=== PATIENT | female | born 1945 | race African-American/Black ===

== ENCOUNTER 2020-05-05 06:14 | Inpatient (IN) | payer OTHER ==
[2020-05-05] VITALS (13 sets, daily range): BP systolic 83–128; BP diastolic 42–67
[~2020-05-05] VITALS: Ht 162.6 cm; Wt 107.0 kg
--- NOTE | 2020-05-05 06:44 | Anethesia Preoperative Eval ---
Anesthesia Pre-op PMH/ROS General Date of Evaluation: May 05, 2020 Time of Evaluation: 07:01 Anesthesiologist: Td ASA Score: ASA 3 Mallampati Score Class I : Soft palate, uvula, fauces, pillars visible Class II: Soft palate, uvula, fauces visible Class III: Soft palate, base of uvula visible Class IV: Only hard plate visible Mallampati Classification: Class II Surgeon: Damaso Diagnosis: Back Pain Surgical Procedure: ALIF L4-5, L5-S1, Post L5-S1 Decompression Anesthesia History: none Family History: no anesthesia problems Allergies: Coded Allergies: ASPIRIN (Verified Allergy, Intermediate, vomiting, 05/04/20) CODEINE (Verified Allergy, Intermediate, vomiting, 05/04/20) Medications: see eMAR Patient NPO?: Yes Past Medical History Cardiovascular: Reports: HTN, arrhythmia, other - HL Pulmonary: Reports: COPD, ESSIE Gastrointestinal/Genitourinary: Reports: GERD Neurologic/Psychiatric: Reports: CVA - Stents Placed Musculoskeletal/Integumentary: Reports: OA, other - Gout Other: obesity - BMI 37 Anesthesia Pre-op Phys. Exam Physician Exam Constitutional: NAD Neurologic: CN 2-12 intact Cardiovascular: RRR Respiratory: CTA Gastrointestinal: S/NT/ND Airway Exam Mallampati Score: Class II MO: full ROM: full Teeth: missing, intact Anesthesia Pre-op A/P Risk Assessment & Plan Assessment: ASA 3 Plan: GA, SED, GlideScope Status Change Before Surgery: No Pre-Antibiotics Dru grams Ancef IV Given Within 1 Hr of Incision: Yes Time Given: 07:31 Negrito Appiah MD May 05, 2020 06:44
[2020-05-05] MEDS ORDERED: Atropine Sulfate 0.4mg/ml inj IVP PRN ×2 (06:45→15:30)
[2020-05-05] MEDS ORDERED: LR 1000ml 1,000 ML IVLG SCH (06:45)
[2020-05-05] MEDS ORDERED: LORazepam Inj 2mg/ml 1ml IV PRN ×2 (06:45→15:30)
[2020-05-05] MEDS ORDERED: Metoclopramide 10mg/2ml Inj IVP PRN ×2 (06:45→15:30)
[2020-05-05] MEDS ORDERED: Meperidine 25mg/1ml Inj (FOR RIGORS ONLY) IV PRN ×2 (06:45→15:30)
[2020-05-05] MEDS ORDERED: Acetaminophen (Non formulary) 100 ML IV ONE (06:45)
[2020-05-05] MEDS ORDERED: Labetalol 5mg/ml 20ml vial IV PRN ×2 (06:45→15:30)
[2020-05-05] MEDS ORDERED: DiphenhydrAMINE 50mg/ml Inj IVP PRN ×2 (06:45→15:30)
[2020-05-05] MEDS ORDERED: fentaNYL 100 mcg/2 mL IV PRN (06:45)
[2020-05-05] MEDS ORDERED: Midazolam 2mg/2ml Inj IVP PRN ×2 (06:45→15:30)
[2020-05-05] MEDS ORDERED: Rocuronium Bromide 50mg/5ml Inj IV ONE (06:47)
[2020-05-05] MEDS ORDERED: EPINEPHrine 1mg/1ml Amp ONE (06:51)
[2020-05-05] MEDS ORDERED: Heparin 5000 units/ml inj ONE (06:52)
[2020-05-05] MEDS ORDERED: Neosporin Oint Ud Pkt TOPIC ONE (06:52)
[2020-05-05] MEDS ORDERED: Bupivacaine 0.25% Inj 30ml INJ ONE (06:53)
[2020-05-05] MEDS ORDERED: Bacitracin 50000 Units Vial ONE (06:53)
[2020-05-05] MEDS ORDERED: Gelfoam Size TOPIC ONE ×2 (06:53→11:32)
[2020-05-05] MEDS ORDERED: Thrombin 5000 units TOPIC ONE ×2 (06:53→11:31)
[2020-05-05] MEDS ORDERED: propofoL 1,000mg/100ml IV ONE (07:00)
[2020-05-05] MEDS ORDERED: Glycopyrrolate 0.2mg/ml 1ml Vial ONE (07:01)
[2020-05-05] MEDS ORDERED: LR 1000ml ONE (07:01)
[2020-05-05] MEDS ORDERED: NS Irrig 1000ml ONE (07:01)
[2020-05-05] MEDS ORDERED: Sterile Water Irrig 2000ml IRRIG ONE (07:01)
--- NOTE | 2020-05-05 07:01 | Immediate Post-Op Evaluation ---
Immediate Post-Op Evalulation Immediate Post-Op Evalulation Procedure: ALIF L4-5, L5-S1, Post L5-S1 Decompression Date of Evaluation: May 05, 2020 Time of Evaluation: 14:43 IV Fluids: 1500 LR Blood Products: 0 Estimated Blood Loss: 350 Urinary Output: 500 Blood Pressure Systolic: 114 Blood Pressure Diastolic: 51 Pulse Rate: 89 Respiratory Rate: 16 O2 Sat by Pulse Oximetry: 100 Temperature (Fahrenheit): 97.2 Pain Score (1-10): 2 Nausea: No Vomiting: No Complications 0 Patient Status: awake, reacts, patent, extubated, none Hydration Status: adequate Dru Grams Ancef IV Given Within 1 Hr of Incision: Yes Time Given: 07:31 Negrito Appiah MD May 05, 2020 07:01
[2020-05-05] MEDS ORDERED: Lidocaine 1% MPF 10mg/ml 5ml ONE (07:05)
[2020-05-05] MEDS ORDERED: Sodium Chloride 10ml vial INJ ONE (07:05)
[2020-05-05] MEDS ORDERED: fentaNYL 100 mcg/2 mL IV ONE ×2 (07:06→13:57)
[2020-05-05] MEDS ORDERED: Lidocaine 1% Plain 30 ml INJ ONE ×2 (07:07→10:12)
[2020-05-05] MEDS ORDERED: CYMBALTA30 MG ORAL (07:11)
[2020-05-05] MEDS ORDERED: VERAPAMIL HCL120 MG PO (07:11)
[2020-05-05] MEDS ORDERED: LIPITOR40 MG ORAL (07:11)
[2020-05-05] MEDS ORDERED: ZOFRAN4 M3 ORAL (07:11)
[2020-05-05] MEDS ORDERED: LISINOPRIL20 MG ORAL (07:11)
[2020-05-05] MEDS ORDERED: HYDROCHLOROTHIA25 MG ORAL (07:11)
[2020-05-05] MEDS ORDERED: TRAMADOL HCL50 MG ORAL (07:11)
[2020-05-05] MEDS ORDERED: OMEPRAZOLE20 M2 ORAL (07:11)
[2020-05-05] MEDS ORDERED: ZYLOPRIM300 MG ORAL (07:11)
[2020-05-05] MEDS ORDERED: MOBIC15 MG ORAL (07:11)
[2020-05-05] MEDS: Bupivacaine 0.5% Inj 30 ml vial INJ ONE ×2 (07:41→14:05)
--- NOTE | 2020-05-05 08:02 | Pre-Procedure Note/Attestation ---
Pre-Procedure Note/Attestation Complete Prior to Procedure Planned Procedure: not applicable Procedure Narrative: L4-5, L5-S1 ALIF Post Decompression Indications for Procedure Pre-Operative Diagnosis: L4-5, L5-S1 stenosis and instability Attestation I attest that I discussed the nature of the procedure; its benefits; risks and complications; and alternatives (and the risks and benefits of such alternatives), prior to the procedure, with the patient (or the patient's legal litigation claim representative). I attest that, if there was a reasonable possibility of needing a blood transfusion, the patient (or the patient's legal litigation claim representative) was given the Pending sale to [facility] standardized written summary, pursuant to the [place] Blood Safety Act ([place] Health and Safety Code # 1645, as amended). I attest that I re-evaluated the patient just prior to the surgery and that there has been no change in the patient's H&P, except as documented below: SHARAN DIAZ May 05, 2020 08:01
[2020-05-05] MEDS ORDERED: ePHEDrine 50mg/ml Inj ONE ×2 (08:03→09:52)
[2020-05-05] MEDS ORDERED: Phenylephrine 10mg/ml Vial ONE (09:47)
--- NOTE | 2020-05-05 12:47 | NUR ---
CASE MANAGEMENT: REVIEW SI: BACK PAIN . L4-5, L5-S1 STENOSIS AND INSTABILITY ALIF L4-5, L5-S1, PSF 05/05 T 97.4 HR 91 RR 20 BP 128/67 SAT 96% ROOM AIR SARS-CoV-2, ADONIS NEGATIVE IS: ANCEF IV X1 LIDOCAINE INJ X1 EPHEDRINE X1 VERSED IV X1 MAG SULFATE IV X1 LR IVF X1 SAME DAY SURGERY DCP: PATIENT IS FROM HOME
--- NOTE | 2020-05-05 14:13 | Brief Operative Note ---
Immediate Post Operative Note Operative Note Pre-op Diagnosis: L4-5, L5-S1 stenosis and instability Procedure: Operation 1: L4-5-S1 ALIF Operation 2. Left L5-S1 decompression and resection of synovial cyst. L4-5 not decompressed: well distracted anteriorly and patient on Pressor during surgery. (Labile BP) Post-op Diagnosis: same as pre-op Surgeon: Damaso Director Of Diversity And Inclusion: Alexsandra Additional Surgeons: Farshad Anesthesiologist: Ari Anesthesia: general Specimen: none Complications: none Condition: stable Fluids: See anesthesia record Estimated Blood Loss: volume - 250cc Drains: none Implant(s) used?: Yes - Renovus cages anteriorly SHARAN DIAZ May 05, 2020 14:12
--- NOTE | 2020-05-05 14:36 | 48 Hour Post Anesthesia Eval ---
Post Anesthesia Evaluation Procedure: ALIF L4-5, L5-S1, Post L5-S1 Decompression Date of Evaluation: May 05, 2020 Time of Evaluation: 16:57 Blood Pressure Systolic: 121 0: 74 Pulse Rate: 81 Respiratory Rate: 18 Temperature (Fahrenheit): 97.6 O2 Sat by Pulse Oximetry: 97 Airway: patent Nausea: No Vomiting: No Pain Intensity: 2 Hydration Status: adequate Cardiopulmonary Status: Stable Mental Status/LOC: patient returned to baseline Follow-up Care/Observations: 0 Post-Anesthesia Complications: 0 Follow-up care needed: N/A Negrito Appiah MD May 05, 2020 14:36
[2020-05-05] MEDS: fentaNYL 100 mcg/2 mL IV PRN ×2 (15:53→16:11)
--- NOTE | 2020-05-05 16:50 | NUR ---
NURSES NOTES: Received report from LATRICIA Orosco. Pt is A/O x4 but drowsy. No pain noted but fenantyl given prior to coming to the unit. Bp is low at 73/39 and MD notified. Placed pt in Trendelenburg and bp raised to 89/52. Will continue to monitor BP. IS given to pt and tolerated well. Admitting order taken from Dr. Eastman and carried out.
--- NOTE | 2020-05-05 17:18 | Diagnostic Imaging Report ---
INDICATION: Pain, intraoperative TECHNIQUE: Intraoperative imaging Fluoroscopy time: 40 seconds Total dose: 0.42193 mGym2 Total number of images: 7 COMPARISON: None FINDINGS: Intraoperative images demonstrate surgical tool projected at the anterior aspect of the L4-5 disc. Subsequent images document placement of anterior fusion hardware at the lower lumbar spine IMPRESSION:
[2020-05-05] MEDS ORDERED: Morphine Sulfate 2mg/ml Inj(IV/IM USE ONLY) IM PRN ×3 (18:00→21:45)
[2020-05-05] MEDS ORDERED: Naloxone 0.4mg/ml Inj IVP PRN (18:00)
[2020-05-05] MEDS ORDERED: ceFAZolin sod 1 GM in D5W 55 ML IV SCH (18:00)
[2020-05-05 18:52] LABS: HEMATOCRIT 28.9 % (37.0-47.0); MEAN CORPUSCULAR VOLUME 101 FL (80-99); PLATELET COUNT 146 K/UL (150-450); RED BLOOD COUNT 2.87 M/UL (4.20-5.40); RED CELL DISTRIBUTION WIDTH 15.4 % (11.6-14.8); WHITE BLOOD COUNT 9.4 K/UL (4.8-10.8)
[2020-05-05 19:06] LABS: CALCIUM 8.9 MG/DL (8.5-10.1); CREATININE 2.5 MG/DL (0.55-1.30); POTASSIUM 5.1 MMOL/L (3.5-5.1)
--- NOTE | 2020-05-05 19:23 | NUR ---
NURSE NOTES: Received report from LATRICIA De Paz. Patient is awake on flat position. Alert and oriented x 4. monitoring manager is in place, shows sinus rhythm with no chest pain reported. On NPO, instructed and amenable. With Abraham lleft in place, drained via gravity, with yellow-orange output. IV site is on left forearm g-20, running D5 NS + 20 that is patent and intact. Safety measures are in place, bed in lowest and locked position, side rails up x 2, call light button and bedside table within reach, instructed to call for any assistance needed. Will continue plan of care.
--- NOTE | 2020-05-05 19:44 | NUR ---
NURSE HAND-OFF REPORT: Important Events on Shift: New Admit S/P Back Surgery Patient Status: Unstable Diet: NPO Pending Orders: Pending Results/Labs: Pending MD notification: Latest Vital Signs: Temperature 97.5 , Pulse 98 , B/P 83 /43 , Respiratory Rate 20 , O2 SAT 96 , Nasal Cannula, O2 Flow Rate 5.0 . Vital Sign Comment: EKG Rhythm: Sinus Rhythm Rhythm change?: N MD Notified?: - MD Response: Latest Hargrove Fall Score: 55 Fall Risk: High Risk Safety Measures: Call light Within Reach, Bed Alarm , Side Rails Side Rails x2, Bed position Low and Locked. Fall Precautions: Patient Fall Education Report given to LATRICIA Gates.
[2020-05-05] MEDS ORDERED: Morphine Sulfate 2mg/ml Inj(IV/IM USE ONLY) IM SCH (20:16)
--- NOTE | 2020-05-05 20:25 | NUR ---
NURSE NOTES: Dr. Eastman at bedside. Ordered pain medication, will carry out.
--- NOTE | 2020-05-05 21:00 | NUR ---
NURSE NOTES: Patient's hemoglobin is 9.0. Dr. Petit ordered to tranfuse 1 unit PRBC. Informed patient regarding this order, verbalized understanding. Will carry out.
--- NOTE | 2020-05-05 21:20 | NUR ---
NURSE NOTES: Consent secured for the blood transfusion. Attached to chart for documentation.
--- NOTE | 2020-05-05 21:40 | NUR ---
NURSE NOTES: Inserted a new IV line on right hand g-22. Assessment done, vitals were taken. Hooked Normal saline and 1 unit PRBC, will monitor for untoward transfusion reaction.
[2020-05-06] VITALS (7 sets, daily range): BP systolic 95–128; BP diastolic 42–58
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
[2020-05-06] MEDS: Morphine Sulfate 2mg/ml Inj(IV/IM USE ONLY) IVP PRN ×4 (00:33→23:59)
[2020-05-06] MEDS: D5NS 1,000 ML IV SCH ×3 (00:34→17:03)
--- NOTE | 2020-05-06 01:30 | NUR ---
NURSE NOTES: Blood transfusion of 1 unit PRBC was done, no transfusion reaction noted. Instructed patient regarding blood drawn this morning to check her hemoglobin level, verbalized understanding.
[2020-05-06] MEDS: ceFAZolin sod 1 GM in D5W 55 ML IV SCH ×2 (02:07→09:48)
[2020-05-06 04:51] LABS: BASOPHILS % (AUTO) 1.7 % (0.0-2.0); HEMATOCRIT 30.2 % (37.0-47.0); HEMOGLOBIN 10.1 G/DL (12.0-16.0); LYMPHOCYTES % (AUTO) 7.7 % (20.0-45.0); MEAN CORPUSCULAR VOLUME 92 FL (80-99); MONOCYTES % (AUTO) 11.6 % (1.0-10.0); NEUTROPHILS % (AUTO) 79.1 % (45.0-75.0); PLATELET COUNT 121 K/UL (150-450); RED BLOOD COUNT 3.27 M/UL (4.20-5.40); RED CELL DISTRIBUTION WIDTH 15.4 % (11.6-14.8); WHITE BLOOD COUNT 7.9 K/UL (4.8-10.8)
[2020-05-06 04:55] LABS: CALCIUM 8.9 MG/DL (8.5-10.1); POTASSIUM 5.3 MMOL/L (3.5-5.1)
--- NOTE | 2020-05-06 07:19 | NUR ---
NURSE HAND-OFF REPORT: Important Events on Shift: Patient has been complaining of lower back pain morphine 2mg was given. Transfussed 1 unit PRBC yesterday. Patient Status: Patient is awake on bed, in stable condition, plan of care endorsed. Diet: NPO except medication and ice chips. Pending Orders: none Pending Results/Labs:none Pending MD notification:none Latest Vital Signs: Temperature 98.2 , Pulse 103 , B/P 103 /42 , Respiratory Rate 20 , O2 SAT 96 , Nasal Cannula, O2 Flow Rate 3.0 . Vital Sign Comment: stable EKG Rhythm: Sinus Tachycardia Rhythm change?: N MD Notified?: N - MD Response: Latest Hargrove Fall Score: 35 Fall Risk: Medium Risk Safety Measures: Call light Within Reach, Bed Alarm , Side Rails Side Rails x2, Bed position Low and Locked. Fall Precautions: Yellow Socks Yellow Gown Door Sign Patient Fall Education Report given to LATRICIA De Paz.
--- NOTE | 2020-05-06 07:31 | NUR ---
NURSE NOTES: Received report from LATRICIA De Jesus. Pt is A/O x 4 and verbally responsive. No SOB or acute distress. BP is stable. Pt is NPO, but allowed ice chips and water for medication. Pt has IV on LFA 22G, running NS that is patent and intact. Pain noted at this time but pt refused medications stating it was tolerable for her. Safety measures are in place, bed in lowest and locked position, side rails up x 2, call light button and bedside table within reach, instructed to call for any assistance needed. Will continue plan of care.
[2020-05-06] MEDS ORDERED: Lisinopril 10mg tab ORAL SCH (09:00)
--- NOTE | 2020-05-06 09:35 | NUR ---
PT EVALUATION NOTE Patient seen for initial evaluation and treatment initiated. Patient presents with pain and impaired functional mobility s/p lumbar surgery. Patient instructed in back precautions and proper log roll technique for in/OOB. Patient required mod assist for bed mobility and min assist for transfers with FWW. Patient able to take several small sideways steps with min assist and FWW. Patient will benefit from skilled inpatient PT intervention to increase strength and postural stability for improved level of functional mobility and safety, and for compliance with spine precautions. Recommend discharge home with home PT once medically cleared by MD. Patient has SPC, FWW and wheelchair at home. Addendum: 05/06/20 at 1258 by ZULEIMA HENDERSON PT Amended: Links added.
[2020-05-06] MEDS: DULoxetine 30mg cap ORAL SCH (09:48)
--- NOTE | 2020-05-06 10:04 | NUR ---
CASE MANAGEMENT:REVIEW 05/06/20 SI: POD#1 S/P SPINAL DECOMPRESSION AND RESECTION. ALIF 98.2 102 20 95/45 96% ON 3L/NC H/H-10.1/30.2 K+5.3 BUN+33 CR+2.0 IS: NICOTINE PATCH Q24 LISINOPRIL PO Q12 ALLOPURINOL PO QD CYMBALTA PO QD IVF@100/HR IV MORPHINE Q2HRS PRN PAIN : TELEMETRY STATUS D/T HYPOTENSION AND TACHYCARDIA
--- NOTE | 2020-05-06 10:05 | NUR ---
NURSES NOTES: Spoke to Dr. Eastman regarding pt and how pt is able to sit semi fowlers and still sustain her BP above 100 systolic. Also that she was feeling flatus and wanted to know if she could have some food. Clear liquids was ordered and carried out. Dr. Eastman stated he would be in later on today to see the pt. Updated him that H/H was up to above 10. And that potassium was high at 5.3. He said it was ok because the IV fluids were changed and it should come down. Informed the ot of her diet changing and that we would keep on eye on her bowels and flatus that she was having.
[2020-05-06] MEDS: HYDROcodone/Acetamin 10/325 tab ORAL PRN ×2 (11:10→18:06)
--- NOTE | 2020-05-06 15:16 | Pain Management Progress Note ---
Allergies: Coded Allergies: ASPIRIN (Verified Allergy, Intermediate, vomiting, 05/04/20) CODEINE (Verified Allergy, Intermediate, vomiting, 05/04/20) Vitals Vital Signs Date Time Temp Pulse Resp B/P (MAP) Pulse Ox O2 Delivery O2 Flow Rate FiO2 05/06/20 12:00 105 05/06/20 12:00 97.9 107 20 128/52 (77) 98 05/06/20 09:48 112/50 05/06/20 09:45 97.9 99 20 124/56 (78) 96 05/06/20 08:31 Nasal Cannula 3.0 05/06/20 08:00 98.2 102 20 112/50 (70) 96 05/06/20 08:00 105 Medications Current Medications Acetaminophen/ Hydrocodone Bitart ([place] 10325) 1 tab Q3H PRN ORAL mild pain Last administered on 05/06/20at 11:10; Start 05/05/20 at 18:00; Stop 05/12/20 at 17:59 Al Hydroxide/Mg Hydroxide (Mylanta) 30 ml Q6H PRN ORAL gerd; Start 05/05/20 at 20:45; Stop 06/04/20 at 20:44 Allopurinol (allopurinoL) 300 mg DAILY ORAL Last administered on 05/06/20at 09:48; Start 05/06/20 at 09:00; Stop 06/05/20 at 08:59 Atorvastatin Calcium (Lipitor) 40 mg BEDTIME ORAL ; Start 05/06/20 at 21:00; Stop 08/04/20 at 20:59 Dextrose/Sodium Chloride 1,000 ml @ 100 mls/hr Q10H IV Last administered on 05/06/20at 09:48; Start 05/05/20 at 22:00; Stop 06/04/20 at 21:59 Diphenhydramine HCl (Benadryl) 25 mg Q6H PRN ORAL Itching; Start 05/05/20 at 20:45; Stop 06/04/20 at 20:44 Duloxetine HCl (Cymbalta) 30 mg DAILY ORAL Last administered on 05/06/20at 09:48; Start 05/06/20 at 09:00; Stop 08/04/20 at 08:59 Lisinopril (ZestriL) 10 mg Q12HR ORAL Last administered on 05/06/20at 09:48; Start 05/06/20 at 09:00; Stop 06/05/20 at 08:59 Morphine Sulfate (Morphine Sulfate) 2 mg Q2H PRN IVP moderate pain Last administered on 05/06/20at 06:04; Start 05/05/20 at 18:00; Stop 05/12/20 at 17:59 Morphine Sulfate (Morphine Sulfate) 3 mg Q3H PRN IM Severe Pain (Pain Scale 7- 10); Start 05/05/20 at 21:45; Stop 05/12/20 at 17:59 Naloxone HCl (Narcan) 0.1 mg Q2M PRN IVP RR<8; Start 05/05/20 at 18:00; Stop 08/03/20 at 17:59 Nicotine (Nicoderm) 1 patch Q24H TDERMAL ; Start 05/06/20 at 22:00; Stop 08/04/20 at 21:59 Ondansetron HCl (Zofran) 4 mg Q4H PRN IVP Nausea & Vomiting Last administered on 05/06/20at 15:01; Start 05/05/20 at 20:45; Stop 06/04/20 at 20:44 Pantoprazole (Protonix) 40 mg BEDTIME ORAL Last administered on 05/05/20at 21:16; Start 05/05/20 at 21:00; Stop 06/04/20 at 20:59 Promethazine HCl (Phenergan) 12.5 mg Q8H PRN IM Nausea & Vomiting; Start 05/05/20 at 20:45; Stop 06/04/20 at 20:44 Laboratory Laboratory Tests 05/05/20 18:45: White Blood Count 9.4, Red Blood Count 2.87L, Hemoglobin 9.0L, Hematocrit 28.9L, Mean Corpuscular Volume 101H, Mean Corpuscular Hemoglobin 31.6H, Mean Corpuscular Hemoglobin Concent 31.3L, Red Cell Distribution Width 15.4H, Platelet Count 146L, Mean Platelet Volume 7.0, Neutrophils (%) (Auto) , Lymphocytes (%) (Auto) , Monocytes (%) (Auto) , Eosinophils (%) (Auto) , Basophils (%) (Auto) , Differential Total Cells Counted 100, Neutrophils % (Manual) 82H, Lymphocytes % (Manual) 10L, Monocytes % (Manual) 7, Eosinophils % (Manual) 0, Basophils % (Manual) 0, Band Neutrophils 1, Platelet Estimate DecreasedL, Platelet Morphology Normal, Polychromasia 1+, Hypochromasia 1+, Anisocytosis 1+, Macrocytosis 1+, Sodium Level 138, Potassium Level 5.1, Chloride Level 104, Carbon Dioxide Level 25, Anion Gap 9, Blood Urea Nitrogen 28H, Creatinine 2.5H, Estimat Glomerular Filtration Rate 22.8, Glucose Level 1 80H, Calcium Level 8.9, Magnesium Level 2.0 05/06/20 04:15: White Blood Count 7.9, Red Blood Count 3.27L, Hemoglobin 10.1L, Hematocrit 30.2L , Mean Corpuscular Volume 92#, Mean Corpuscular Hemoglobin 30.8, Mean Corpuscular Hemoglobin Concent 33.4, Red Cell Distribution Width 15.4H, Platelet Count 121L, Mean Platelet Volume 6.8, Neutrophils (%) (Auto) 79.1H, Lymphocytes (%) (Auto) 7.7L, Monocytes (%) (Auto) 11.6H, Eosinophils (%) (Auto) 0.0, Basophils (%) (Auto) 1.7, Sodium Level 140, Potassium Level 5.3H, Chloride Level 106, Carbon Dioxide Level 29, Anion Gap 5, Blood Urea Nitrogen 33H, Creatinine 2.0H, Estimat Glomerular Filtration Rate 29.5, Glucose Level 144H, Calcium Level 8.9 Plan: I spent over sixty minutes in consultation today. Patient seen with LATRICIA De Paz. Discussed with surgeon Dr Petit. Pain level 5 / 10 on the visual-analog pain scale after ALIF. MAR medication list reviewed. Both morphine and norco 10's effective. Continue prn. Clear liquids diet tolerated without emesis. Prn zofran remains available. GI: +BS + burping; no flatus. Await flatus before advancing diet. Encourage incentive spirometer usage. 50-year tobacco smoker. Breathing comfortably on minimal NC oxygen. Denies SOB or CP. BP better this morning after overnight pRBC. Recheck CBC in AM. Monitor platelets and K+. Able to elevate HOB > 45 degrees without orthostatic hypotension or nausea. Continue to monitor Creatinine, which improved from 2.3 to 2.0 this morning. Check AM labs. Continue IV fluids for now. Will restart home verapamil tomorrow AM if BP can handle. Good urine output; continue Abraham catheter able to ambulate out of bed to commode. Encourage advancing ambulation with physical therapy as tolerated. Only able to sit at bedside so far. Back brace at bedside. SCDs for mechanical prophylaxis against deep venous thrombosis and PEs. Discussed discharge planning with RNs & surgeon to help expedite hospital discharge. Will order FWW for home use. [place] Rx needed for outpatient pain medication usage. Paul Eastman MD May 06, 2020 15:16
[2020-05-06] MEDS: Verapamil 80mg tab ORAL SCH ×2 (16:30→20:08)
[2020-05-06] MEDS ORDERED: Verapamil 80mg tab ORAL SCH (18:00)
--- NOTE | 2020-05-06 19:21 | NUR ---
NURSE NOTES: Received report from LATRICIA De Paz. Patient is awake on bed, alert and oriented x 4. line installer is in place, shows sinus rhythm. On oxygen via nasal cannula @ 3 Lpm sating 96% with no shortness of breath reported. On clear liquid diet, instructed and amenable. With Abraham catheter in place, drained via gravity with light eleanor color urine. IV site is on left hand g-22 running [id number] @ 100 cc/hour and IV on right hand g-22 saline lock that is patent and intact. Safety measures are in place, bed in lowest and locked position, side rails up x 2. Call light button and bedside table within reach, instructed to call for any assistance needed, will continue plan of care.
--- NOTE | 2020-05-06 19:22 | NUR ---
NURSE HAND-OFF REPORT: Important Events on Shift: PT evaluation and pt stood. Pt need to have gas pass to be discharged. Patient Status: Stable Diet: Clear Liquid Diet Pending Orders: Pending Results/Labs: Pending MD notification: Latest Vital Signs: Temperature 98.2 , Pulse 104 , B/P 119 /50 , Respiratory Rate 20 , O2 SAT 96 , Nasal Cannula, O2 Flow Rate 3.0 . Vital Sign Comment: EKG Rhythm: Sinus Tachycardia Rhythm change?: N MD Notified?: N - MD Response: Latest Hargrove Fall Score: 35 Fall Risk: Medium Risk Safety Measures: Call light Within Reach, Bed Alarm , Side Rails Side Rails x2, Bed position Low and Locked. Fall Precautions: Yellow Socks Yellow Gown Door Sign Patient Fall Education Report given to
[2020-05-06] MEDS: Atorvastatin 20mg tab ORAL SCH (20:15)
[2020-05-07] VITALS (7 sets, daily range): BP systolic 96–125; BP diastolic 48–93
[2020-05-07] MEDS: D5NS 1,000 ML IV SCH ×3 (01:57→22:12)
[2020-05-07] MEDS: Morphine Sulfate 2mg/ml Inj(IV/IM USE ONLY) IVP PRN ×2 (02:03→06:20)
[2020-05-07 07:14] LABS: HEMATOCRIT 27.6 % (37.0-47.0); HEMOGLOBIN 9.1 G/DL (12.0-16.0); MEAN CORPUSCULAR VOLUME 93 FL (80-99); PLATELET COUNT 106 K/UL (150-450); RED BLOOD COUNT 2.96 M/UL (4.20-5.40); RED CELL DISTRIBUTION WIDTH 15.3 % (11.6-14.8); WHITE BLOOD COUNT 9.4 K/UL (4.8-10.8)
[2020-05-07 07:23] LABS: BLOOD UREA NITROGEN 18 mg/dL (7-18); CALCIUM 8.5 MG/DL (8.5-10.1); CHLORIDE 104 MMOL/L (98-107); CREATININE 1.4 MG/DL (0.55-1.30); POTASSIUM 4.8 MMOL/L (3.5-5.1); SODIUM 137 MMOL/L (136-145)
[2020-05-07 07:38] LABS: CARBON DIOXIDE 28 MMOL/L (21-32)
--- NOTE | 2020-05-07 07:42 | NUR ---
NURSE NOTES: Received pt from LATRICIA Mccloud, pt is awake and alert, pt has NC 1lit. pt has intact iv access RH 22G is running well. pt is on continues heart monitoring. pt has Abraham cath in place is working well. Pt is eating breakfast by observation. All needs attended, bed is locked and is in the lowest position, call light within easy reach. will continue to monitor.
--- NOTE | 2020-05-07 07:43 | NUR ---
NURSE HAND-OFF REPORT: Important Events on Shift: Patient still complaining of pain on her lower abdomen, she was able to turn to sides with assistance. Patient Status: Patient is awake on bed, plan of care endorsed. Diet: Clear liquid diet Pending Orders: none Pending Results/Labs:none Pending MD notification: none Latest Vital Signs: Temperature 98.5 , Pulse 109 , B/P 118 /56 , Respiratory Rate 24 , O2 SAT 95 , Nasal Cannula, O2 Flow Rate 1.0 . Vital Sign Comment: stable EKG Rhythm: Sinus Tachycardia Rhythm change?: N MD Notified?: N - MD Response: Latest Hargrove Fall Score: 35 Fall Risk: Medium Risk Safety Measures: Call light Within Reach, Bed Alarm , Side Rails Side Rails x2, Bed position Low and Locked. Fall Precautions: Yellow Socks Yellow Gown Door Sign Patient Fall Education Report given to LATRICIA Woo.
--- NOTE | 2020-05-07 07:51 | Pain Management Progress Note ---
Allergies: Coded Allergies: ASPIRIN (Verified Allergy, Intermediate, vomiting, 05/04/20) CODEINE (Verified Allergy, Intermediate, vomiting, 05/04/20) Vitals Vital Signs Date Time Temp Pulse Resp B/P (MAP) Pulse Ox O2 Delivery O2 Flow Rate FiO2 05/07/20 04:00 113 05/07/20 04:00 98.5 109 24 118/56 (76) 95 05/07/20 00:00 98.1 107 20 123/61 (81) 98 05/07/20 00:00 109 Medications Current Medications Acetaminophen (Tylenol) 650 mg Q6H PRN ORAL T>100.5; Start 05/06/20 at 15:30; Stop 06/05/20 at 15:29 Acetaminophen/ Hydrocodone Bitart ([place] 10/325) 1 tab 0738 ONCE ORAL ; Start 05/07/20 at 07:38; Stop 05/07/20 at 07:39; Status UNV Acetaminophen/ Hydrocodone Bitart ([place] 10/325) 1 tab Q3H PRN ORAL mild pain Last administered on 05/06/20at 18:06; Start 05/05/20 at 18:00; Stop 05/12/20 at 17:59 Al Hydroxide/Mg Hydroxide (Mylanta) 30 ml Q6H PRN ORAL gerd; Start 05/05/20 at 20:45; Stop 06/04/20 at 20:44 Allopurinol (allopurinoL) 300 mg DAILY ORAL Last administered on 05/06/20at 09:48; Start 05/06/20 at 09:00; Stop 06/05/20 at 08:59 Atorvastatin Calcium (Lipitor) 40 mg BEDTIME ORAL Last administered on 05/06/20at 20:15; Start 05/06/20 at 21:00; Stop 08/04/20 at 20:59 Clonidine HCl (Catapres Tab) 0.1 mg Q8H PRN ORAL SBP > 160mmHg; Start 05/06/20 at 15:30; Stop 08/04/20 at 15:29 Dextrose/Sodium Chloride 1,000 ml @ 50 mls/hr Q20H IV Last administered on 05/07/20at 01:57; Start 05/05/20 at 22:00; Stop 06/04/20 at 21:59 Diphenhydramine HCl (Benadryl) 25 mg Q6H PRN ORAL Itching; Start 05/05/20 at 20:45; Stop 06/04/20 at 20:44 Duloxetine HCl (Cymbalta) 30 mg DAILY ORAL Last administered on 05/06/20at 09:48; Start 05/06/20 at 09:00; Stop 08/04/20 at 08:59 Morphine Sulfate (Morphine Sulfate) 2 mg Q2H PRN IVP moderate pain Last administered on 05/07/20at 06:20; Start 05/05/20 at 18:00; Stop 05/12/20 at 17:59 Morphine Sulfate (Morphine Sulfate) 3 mg Q3H PRN IM Severe Pain (Pain Scale 7- 10); Start 05/05/20 at 21:45; Stop 05/12/20 at 17:59 Naloxone HCl (Narcan) 0.1 mg Q2M PRN IVP RR<8; Start 05/05/20 at 18:00; Stop 08/03/20 at 17:59 Nicotine (Nicoderm) 1 patch Q24H TDERMAL Last administered on 05/06/20at 21:55; Start 05/06/20 at 22:00; Stop 08/04/20 at 21:59 Ondansetron HCl (Zofran) 4 mg Q4H PRN IVP Nausea & Vomiting Last administered on 05/06/20at 15:01; Start 05/05/20 at 20:45; Stop 06/04/20 at 20:44 Pantoprazole (Protonix) 40 mg BEDTIME ORAL Last administered on 05/06/20at 20:08; Start 05/05/20 at 21:00; Stop 06/04/20 at 20:59 Promethazine HCl (Phenergan) 12.5 mg Q8H PRN IM Nausea & Vomiting; Start 05/05/20 at 20:45; Stop 06/04/20 at 20:44 Verapamil HCl (Calan) 80 mg Q12HR ORAL Last administered on 05/06/20at 20:08; Start 05/06/20 at 16:30; Stop 06/05/20 at 16:29 Laboratory Laboratory Tests 05/07/20 06:30: White Blood Count 9.4, Red Blood Count 2.96L, Hemoglobin 9.1L, Hematocrit 27.6L, Mean Corpuscular Volume 93, Mean Corpuscular Hemoglobin 30.8, Mean Corpuscular Hemoglobin Concent 33.0, Red Cell Distribution Width 15.3H, Platelet Count 106L, Mean Platelet Volume 7.4, Neutrophils (%) (Auto) , Lymphocytes (%) (Auto) , Monocytes (%) (Auto) , Eosinophils (%) (Auto) , Basophils (%) (Auto) , Neutrophils % (Manual) [Pending], Lymphocytes % (Manual) [Pending], Platelet Estimate [Pending], Platelet Morphology [Pending], Sodium Level 137, Potassium Level 4.8, Chloride Level 104, Carbon Dioxide Level [Pending], Blood Urea Nitrogen 18, Creatinine 1.4H, Estimat Glomerular Filtration Rate 44.5, Glucose Level 127H, Calcium Level 8.5 Plan: I spent over sixty minutes in consultation today. Patient seen with LATRICIA De Jesus. Discussed with surgeon Dr Petit & pt's daughter via phone.. GI: +BS + burping; still no flatus after ALIF. Encourage incentive spirometer usage. 50-year tobacco smoker. Breathing comfortably on minimal NC oxygen; continue to wean-off O2. Denies SOB or CP. Rechecked CBC this am with Hgb 9 and platelets 106. Normal K+ at 4,8 this am. Creatinine improved to 1.4 this morning; from 2.3 & 2.0 the past 2 mornings. Begin to decrease IV fluids, now that pt is tolerating clear liquids & creatinine improved. Clear liquids diet tolerated without emesis. Await flatus before advancing diet further. Restarted home verapamil last night; BP WNL. No orthostatic hypotension or nausea. Good urine output; continue Adame catheter until able to ambulate out of bed to commode. Possibly d/c adame later this am if does well with PT. Encourage advancing ambulation with physical therapy as tolerated. Still barely able to ambulate out of bed. FWW provided for home usage. Back brace at bedside. SCDs for mechanical prophylaxis against deep venous thrombosis and PEs. Discussed discharge planning with RNs & surgeon to help expedite hospital discharge. Daughter will dropoff [place] Rx at local [facility] later today. Daughter is motivated to accept pt home. Pain level 6 / 10, after ALIF. A&O x 3. MAR medication list reviewed. Both morphine and norco 10's effective. Continue prn. [place] Rx left for outpatient pain medication usage. Paul Eastman MD May 07, 2020 07:51
[2020-05-07] MEDS ORDERED: HYDROcodone/Acetamin 10/325 tab ORAL SCH (08:00)
[2020-05-07] MEDS: DULoxetine 30mg cap ORAL SCH (08:11)
[2020-05-07] MEDS: Verapamil 80mg tab ORAL SCH (08:16)
--- NOTE | 2020-05-07 09:00 | NUR ---
NURSE NOTES: Dr Eastman is aware pt has fever, ordered don't give Tylenol, only given [place], noted and carried out. will continue to monitor.
[2020-05-07] MEDS ORDERED: ZESTRIL40 MG ORAL (11:17)
[2020-05-07] MEDS ORDERED: BUPROPION HCL150 M3 ORAL (11:18)
[2020-05-07] MEDS ORDERED: NICOTINE GUM4 MG BC (11:20)
[2020-05-07] MEDS: HYDROcodone/Acetamin 10/325 tab ORAL PRN ×2 (11:44→18:29)
--- NOTE | 2020-05-07 12:40 | NUR ---
NURSE NOTES: Pt arrived from Tele via hospital bed , a/oX4, breaths regular unlabored on 2 L NC. Received report from Chilo RN, no belongings list from TEle , tele nurse could not find list . Made new list of belongings and verified them with Pt, surgical dressing intact and Abraham catheter intact anchored to R thigh. Pt has a LT hand 22 G with IVF intact asymptomatic , will continue with plan of care
--- NOTE | 2020-05-07 12:40 | NUR ---
NURSE NOTES: pt is stable, V/S stable, no stress noted. pt stated all belongings are with her. iv acces is intact. [employer] cath is in place and working well. Pt transferred to 303 bed 1, Report given to LATRICIA Mancini. Addendum: 05/07/20 at 1300 by Chilo Snider RN Endorsed plan of care, endorsed to give morphine as Dr Eastman order before PT.
--- NOTE | 2020-05-07 12:42 | NUR ---
CASE MANAGEMENT:REVIEW 05/07/20 SI: POD#2 S/P SPINAL DECOMPRESSION AND RESECTION. ALIF VS: T 100.2 HR 100 RR 20 B/P 96/93 SATS 95% ON 1L/NC LABS: HGB 9.1 HCT 27.6 CR 1.4 GLU 127 IS: NICOTINE PATCH Q24 LISINOPRIL PO Q12 ALLOPURINOL PO QD CYMBALTA PO QD IVF@50 mL/HR LIPITOR PO QHS CALAN PO Q12H IV MORPHINE Q2HRS PRN PAIN : MED/SURG PLAN OF CARE : FWW provided for home usage. Back brace at bedside CLD
--- NOTE | 2020-05-07 19:16 | NUR ---
NURSE NOTES: Received report from [facility]. Rounding is done. Patient is a/o x4. C/O pain 2/10 at this time and will follow up. No any distress at this time. Breathing is even unlabored on RA. IV site is intact and IV fluid is running. Surgical dressing on abdomen and back are c/d/i. Abraham is in place and draining to gravity. All safety measures are provided. Bed is on alarm, locked, and lowest position. Call light within reach. Will continue to monitor.
--- NOTE | 2020-05-07 19:27 | NUR ---
NURSE HAND-OFF: Important Events on Shift:pt transferred from tele Patient Status: stable Diet: Clear liquid Pending Orders: Pending Results/Labs: Pending MD notification: Latest Vital Signs: Temperature 98.9 , Pulse 99 , B/P 110 /51 , Respiratory Rate 20 , O2 SAT 95 , Nasal Cannula, O2 Flow Rate 1.0 . Vital Sign Comment: Latest Hargrove Fall Score: 60 Fall Risk: High Risk Safety Measures: Call light Within Reach, Bed Alarm , Side Rails Side Rails x2, Bed position Low and Locked. Fall Precautions: Yellow Socks Yellow Gown Door Sign Patient Fall Education Report given to Lucy ROME.
--- NOTE | 2020-05-07 19:39 | NUR ---
NURSE NOTES: pt belongings lumber brace , front wheel walker, IS, commode for pt to take home
[2020-05-07] MEDS: Atorvastatin 20mg tab ORAL SCH (22:12)
[2020-05-08] VITALS: BP 104/73
[2020-05-08] MEDS: HYDROcodone/Acetamin 10/325 tab ORAL PRN ×2 (02:18→08:51)
--- NOTE | 2020-05-08 02:20 | NUR ---
NURSE NOTES: patient c/o pain 12/31 and request [place]. Given [place] and will follow up.
[2020-05-08 04:00] VITALS: BP 114/56
--- NOTE | 2020-05-08 05:17 | Pain Management Progress Note ---
Allergies: Coded Allergies: ASPIRIN (Verified Allergy, Intermediate, vomiting, 05/04/20) CODEINE (Verified Allergy, Intermediate, vomiting, 05/04/20) Vitals Vital Signs Date Time Temp Pulse Resp B/P (MAP) Pulse Ox O2 Delivery O2 Flow Rate FiO2 05/08/20 00:00 100.1 110 20 104/73 (83) 95 Medications Current Medications Acetaminophen/ Hydrocodone Bitart ([place] 10/325) 1 tab Q3H PRN ORAL Mild Pain (Pain Scale 1-3) Last administered on 05/08/20at 02:18; Start 05/05/20 at 18:00; Stop 05/12/20 at 17:59 Al Hydroxide/Mg Hydroxide (Mylanta) 30 ml Q6H PRN ORAL gerd; Start 05/05/20 at 20:45; Stop 06/04/20 at 20:44 Allopurinol (allopurinoL) 300 mg DAILY ORAL Last administered on 05/07/20at 08:16; Start 05/06/20 at 09:00; Stop 06/05/20 at 08:59 Atorvastatin Calcium (Lipitor) 40 mg BEDTIME ORAL Last administered on 05/07/20at 22:12; Start 05/06/20 at 21:00; Stop 08/04/20 at 20:59 Clonidine HCl (Catapres Tab) 0.1 mg Q8H PRN ORAL SBP > 160mmHg; Start 05/06/20 at 15:30; Stop 08/04/20 at 15:29 Dextrose/Sodium Chloride 1,000 ml @ 50 mls/hr Q20H IV Last administered on 05/07/20at 22:12; Start 05/05/20 at 22:00; Stop 06/04/20 at 21:59 Diphenhydramine HCl (Benadryl) 25 mg Q6H PRN ORAL Itching; Start 05/05/20 at 20:45; Stop 06/04/20 at 20:44 Duloxetine HCl (Cymbalta) 30 mg DAILY ORAL Last administered on 05/07/20at 08:11; Start 05/06/20 at 09:00; Stop 08/04/20 at 08:59 Morphine Sulfate (Morphine Sulfate) 2 mg Q2H PRN IVP moderate pain Last administered on 05/07/20at 06:20; Start 05/05/20 at 18:00; Stop 05/12/20 at 17:59 Morphine Sulfate (Morphine Sulfate) 3 mg Q3H PRN IM Severe Pain (Pain Scale 7- 10) Last administered on 05/07/20at 14:33; Start 05/05/20 at 21:45; Stop 05/12/20 at 17:59 Naloxone HCl (Narcan) 0.1 mg Q2M PRN IVP RR<8; Start 05/05/20 at 18:00; Stop 08/03/20 at 17:59 Nicotine (Nicoderm) 1 patch Q24H TDERMAL Last administered on 05/07/20at 22:13; Start 05/06/20 at 22:00; Stop 08/04/20 at 21:59 Ondansetron HCl (Zofran) 4 mg Q4H PRN IVP Nausea & Vomiting Last administered on 05/06/20at 15:01; Start 05/05/20 at 20:45; Stop 06/04/20 at 20:44 Pantoprazole (Protonix) 40 mg BEDTIME ORAL Last administered on 05/07/20at 22:12; Start 05/05/20 at 21:00; Stop 06/04/20 at 20:59 Verapamil HCl (Calan) 80 mg Q12HR ORAL Last administered on 05/07/20at 08:16; Start 05/06/20 at 16:30; Stop 06/05/20 at 16:29 Laboratory Laboratory Tests 05/07/20 06:30: White Blood Count 9.4, Red Blood Count 2.96L, Hemoglobin 9.1L, Hematocrit 27.6L, Mean Corpuscular Volume 93, Mean Corpuscular Hemoglobin 30.8, Mean Corpuscular Hemoglobin Concent 33.0, Red Cell Distribution Width 15.3H, Platelet Count 106L, Mean Platelet Volume 7.4, Neutrophils (%) (Auto) , Lymphocytes (%) (Auto) , Monocytes (%) (Auto) , Eosinophils (%) (Auto) , Basophils (%) (Auto) , Differential Total Cells Counted 100, Neutrophils % (Manual) 86H, Lymphocytes % (Manual) 7L, Monocytes % (Manual) 7, Eosinophils % (Manual) 0, Basophils % (Manual) 0, Band Neutrophils 0, Platelet Estimate DecreasedL, Platelet Morphology Normal, Anisocytosis 1+, Sodium Level 137, Potassium Level 4.8, Chloride Level 104, Carbon Dioxide Level 28, Blood Urea Nitrogen 18, Creatinine 1.4H, Estimat Glomerular Filtration Rate 44.5, Glucose Level 127H, Calcium Level 8.5 Plan: I spent over sixty minutes in consultation today. Patient seen with RN Da. Discussed with surgeon Dr Petit. Denies SOB or CP; pt transferred from telemetry upstairs to ortho floor for more aggressive PT care. GI: +BS + burping; still no flatus after ALIF. Will hold-off on stool softeners or laxatives until + flatus. Encourage incentive spirometer usage. 50-year tobacco smoker. Breathing comfortably on minimal NC oxygen; will wean-off O2 today. Pt is tolerating clear liquids; will heplock IV fluids to make it easier to move in and out of bed. Clear liquids diet tolerated without emesis. Await flatus before advancing diet further. BP WNL; continue verapamil with hold parameters. No orthostatic hypotension or nausea. Good urine output. Will d/c adame later this am, as able to ambulate out of bed to commode Encourage advancing ambulation with physical therapy as tolerated. Still needs [id number] to ambulate out of bed. Hopefully, pt can make progress with ambulation today to enable discharge to home tomorrow [Monday] morning. Daughter is motivated to accept pt home. FWW & bedsisde commode provided for home usage. Back brace at bedside. SCDs for mechanical prophylaxis against deep venous thrombosis and PEs. Daughter picked-up [place] Rx, to dropoff at local [facility]. Pain level 6 / 10, after ALIF. A&O x 3. MAR medication list reviewed. Both morphine and norco 10's effective. Continue prn. Will use norco [which contains tylenol] for both pain control and as anti- pyretic. Low-grade fevers certainly contributed from inadequate ambulation. Pt IS using incentives spirometer aggressively thankfully to hopefully lower fevers. Wound dressings clean & dry; no signs for infection. Await flatus & improvement with ambulation prior to discharge. Pt & surgeon agree with plan. Paul Eastman MD May 08, 2020 05:17
[2020-05-08] MEDS: Verapamil 80mg tab ORAL SCH ×2 (05:30→08:47)
--- NOTE | 2020-05-08 06:22 | NUR ---
NURSE NOTES: Discontinued adame catheter as ordered and urine output in adame is 650 ml. Will follow up for voiding.
--- NOTE | 2020-05-08 07:04 | NUR ---
NURSE NOTES: patient removed nicotine patch by herself.
--- NOTE | 2020-05-08 07:14 | NUR ---
NURSE NOTES: Handoff received from Zane RN. Patient is awake and alert, no signs of distress, breathing is even and unlabored on room air. Left FA IV is intact and asymptomatic, saline locked. Patient updated on plan of care, ambulation and goal of passing flatus. No reports of pain at this time. Bed is low and locked, side rails up x2, call light is within reach.
--- NOTE | 2020-05-08 07:15 | NUR ---
NURSE HAND-OFF: Important Events on Shift:[temperture, pain control] Patient Status: [stable] Diet: [clear liquid] Pending Orders: [n] Pending Results/Labs:[n] Pending MD notification:[n] Latest Vital Signs: Temperature 99.6 , Pulse 106 , B/P 114 /56 , Respiratory Rate 20 , O2 SAT 95 , Nasal Cannula, O2 Flow Rate 2.0 . Vital Sign Comment: [stable] Latest Hargrove Fall Score: 60 Fall Risk: High Risk Safety Measures: Call light Within Reach, Bed Alarm , Side Rails Side Rails x2, Bed position Low and Locked. Fall Precautions: Yellow Socks Yellow Gown Door Sign Patient Fall Education Report given to [DAYRONINGCO RN].
[2020-05-08 08:00] VITALS: BP 105/64
[2020-05-08] MEDS: DULoxetine 30mg cap ORAL SCH (08:51)
--- NOTE | 2020-05-08 09:00 | NUR ---
NURSE NOTES: Per MD hold verapamil today and start tomorrow 05/09
[2020-05-08] MEDS: Morphine Sulfate 2mg/ml Inj(IV/IM USE ONLY) IVP PRN ×3 (09:38→21:03)
[2020-05-08 12:00] VITALS: BP 98/46
--- NOTE | 2020-05-08 12:36 | NUR ---
DISCHARGE PLANNING: NOTE ORDER FAXED TO [facility] FOR DME Addendum: 05/08/20 at 1402 by Ynes Kwok CM F/U CALL TO [facility] REGARDING DME REQUEST. REFERRAL TO BE PROCESSED
--- NOTE | 2020-05-08 14:05 | NUR ---
CASE MANAGEMENT:REVIEW 05/08/20 SI: POD#3 S/P SPINAL DECOMPRESSION AND RESECTION. ALIF VS: T 99.6 hr 108 RR 18 B/P 98/46 SATS 94% ON 2L/NC LABS: NO LABS TODAY IS: NICOTINE PATCH Q24 LISINOPRIL PO Q12 ALLOPURINOL PO QD CYMBALTA PO QD LIPITOR PO QHS CALAN PO Q12H IV MORPHINE Q2HRS PRN PAIN : MED/SURG
[2020-05-08 16:00] VITALS: BP 138/62
--- NOTE | 2020-05-08 16:57 | General Progress Note ---
Assessment/Plan Status: doing well, progressing Assessment/Plan: The patient's Abraham D/Emmanuel awaiting Voiding is tolerating PO and passing gas and BM Ambulating with help and brace pain well controlled. Will D/C home when stable Subjective Date patient seen: May 08, 2020 Allergies: Coded Allergies: ASPIRIN (Verified Allergy, Intermediate, vomiting, 05/04/20) CODEINE (Verified Allergy, Intermediate, vomiting, 05/04/20) Subjective The patient is stable VSS T= 99.7 Moves BLE with good strength Straight leg raise is normal bilateral Wounds c/d/i Abod soft and passing Gas Objective Last 24 Hour Vital Signs Date Time Temp Pulse Resp B/P (MAP) Pulse Ox O2 Delivery O2 Flow Rate FiO2 05/08/20 14:04 98.5 05/08/20 12:00 98.5 108 18 98/46 (63) 94 05/08/20 10:08 99.6 05/08/20 09:21 99.6 05/08/20 09:00 Nasal Cannula 2.0 05/08/20 08:47 110 105/64 05/08/20 08:00 99.5 110 20 105/64 (78) 90 05/08/20 05:30 106 114/56 05/08/20 04:00 99.6 106 20 114/56 (75) 95 05/08/20 00:00 100.1 110 20 104/73 (83) 95 05/07/20 21:00 Nasal Cannula 2.0 05/07/20 20:00 99.8 108 20 125/63 (83) 95 Intake and Output 05/07/20 05/08/20 19:00 07:00 Intake Total 1078 ml 850 ml Output Total 750 ml 650 ml Balance 328 ml 200 ml Intake Oral 778 ml 400 ml IV Total 300 ml 450 ml Output Urine Total 750 ml 650 ml Height (Feet): 5 Height (Inches): 4.00 Weight (Pounds): 212 General Appearance: no apparent distress Objective Moves Eddie LE with good strength no edema in LEs No tenderness in LE No sign of wound infection SHARAN DIAZ May 08, 2020 16:57
--- NOTE | 2020-05-08 17:10 | NUR ---
CASE MANAGEMENT: NOTE PT HAS FWW AND BRACE AT BEDSIDE SHASHI AT [facility] WILL HAVE XLARGE BSC DELIVERED TO BE BEDSIDE TODAY IN ANTICIPATION OF DC IN AM.
--- NOTE | 2020-05-08 19:20 | NUR ---
NURSE HAND-OFF: Important Events on Shift:[reinsertion of adame] Patient Status: stable Diet: clear liq to full liq in the AM Pending Orders: Pending Results/Labs: Pending MD notification: Latest Vital Signs: Temperature 99.7 , Pulse 108 , B/P 138 /62 , Respiratory Rate 20 , O2 SAT 94 , Nasal Cannula, O2 Flow Rate 2.0 . Vital Sign Comment: stable Latest Hargrove Fall Score: 60 Fall Risk: High Risk Safety Measures: Call light Within Reach, Bed Alarm , Side Rails Side Rails x2, Bed position Low and Locked. Fall Precautions: Yellow Socks Yellow Gown Door Sign Patient Fall Education Report given to Ange ROME.
[2020-05-08 20:00] VITALS: BP 127/69
[2020-05-08] MEDS: Atorvastatin 20mg tab ORAL SCH (21:02)
[2020-05-08] MEDS: Docusate 100mg cap ORAL SCH (21:02)
--- NOTE | 2020-05-08 21:15 | NUR ---
NURSES NOTE: Pt in bed, A/OX4, states she has pain 6/10 in lower back. Morphine 2mg IV push administered. Will f/u with pain assessment. Breathing pattern is even and unlabored on 2L. No outward s/s of distress noted. Dressing anterior/posterior is dry, intact clean. IV L FA is intact, flushes well, no s/s of infiltration. Ambulates with assist with front wheel walker. Bed at lowest level, call light within reach. Pt will continue to be monitored.
[2020-05-09] VITALS (7 sets, daily range): BP systolic 111–141; BP diastolic 56–79
[2020-05-09] MEDS: Morphine Sulfate 2mg/ml Inj(IV/IM USE ONLY) IVP PRN ×2 (02:43→08:34)
[2020-05-09] MEDS: HYDROcodone/Acetamin 10/325 tab ORAL PRN ×5 (06:10→23:21)
--- NOTE | 2020-05-09 06:45 | NUR ---
NURSE HAND-OFF: Important Events on Shift:[Pt ambulates with max assist] Patient Status: [stable] Diet: [full liquid as of 05/09 breakfast] Pending Orders: [none] Pending Results/Labs:[none] Pending MD notification:[none] Latest Vital Signs: Temperature 99.5 , Pulse 106 , B/P 111 /63 , Respiratory Rate 19 , O2 SAT 95 , Nasal Cannula, O2 Flow Rate 2.0 . Vital Sign Comment: [within normal limits] Latest Hargrove Fall Score: 40 Fall Risk: Medium Risk Safety Measures: Call light Within Reach, Bed Alarm , Side Rails Side Rails x2, Bed position Low and Locked. Fall Precautions: Yellow Socks Yellow Gown Door Sign Patient Fall Education Report given to [].
--- NOTE | 2020-05-09 07:14 | NUR ---
HAND OFF: Report given to LATRICIA Mancini.
[2020-05-09] MEDS: DULoxetine 30mg cap ORAL SCH (08:34)
[2020-05-09] MEDS: Docusate 100mg cap ORAL SCH ×2 (08:34→17:18)
--- NOTE | 2020-05-09 10:45 | NUR ---
NURSE NOTES: Spoke to regarding Abraham catheter and d/c at 1200. Order noted and carried out.
[2020-05-09] MEDS: Bethanechol 25mg Tab ORAL SCH ×2 (10:57→17:18)
[2020-05-09] MEDS: Tamsulosin 0.4mg cap ORAL SCH (10:58)
[2020-05-09] MEDS ORDERED: Tamsulosin 0.4mg cap ORAL SCH (11:00)
[2020-05-09] MEDS ORDERED: Bethanechol 25mg Tab ORAL SCH (11:00)
--- NOTE | 2020-05-09 11:08 | Pain Management Progress Note ---
Allergies: Coded Allergies: ASPIRIN (Verified Allergy, Intermediate, vomiting, 05/04/20) CODEINE (Verified Allergy, Intermediate, vomiting, 05/04/20) Vitals Vital Signs Date Time Temp Pulse Resp B/P (MAP) Pulse Ox O2 Delivery O2 Flow Rate FiO2 05/09/20 08:00 98.7 100 19 141/56 (84) 98 05/09/20 04:00 99.5 106 19 111/63 (79) 95 Medications Current Medications Acetaminophen/ Hydrocodone Bitart ([place] 10325) 1 tab Q3H PRN ORAL Mild Pain (Pain Scale 1-3) Last administered on 05/09/20at 10:05; Start 05/05/20 at 18:00; Stop 05/12/20 at 17:59 Al Hydroxide/Mg Hydroxide (Mylanta) 30 ml Q6H PRN ORAL gerd; Start 05/05/20 at 20:45; Stop 06/04/20 at 20:44 Allopurinol (allopurinoL) 300 mg DAILY ORAL Last administered on 05/09/20at 08:34; Start 05/06/20 at 09:00; Stop 06/05/20 at 08:59 Atorvastatin Calcium (Lipitor) 40 mg BEDTIME ORAL Last administered on 05/08/20at 21:02; Start 05/06/20 at 21:00; Stop 08/04/20 at 20:59 Clonidine HCl (Catapres Tab) 0.1 mg Q8H PRN ORAL SBP > 160mmHg; Start 05/06/20 at 15:30; Stop 08/04/20 at 15:29 Diphenhydramine HCl (Benadryl) 25 mg Q6H PRN ORAL Itching; Start 05/05/20 at 20:45; Stop 06/04/20 at 20:44 Docusate Sodium (Colace) 100 mg TWICE A DAY ORAL Last administered on 05/09/20at 08:34; Start 05/08/20 at 20:00; Stop 06/07/20 at 19:59 Duloxetine HCl (Cymbalta) 30 mg DAILY ORAL Last administered on 05/09/20at 08:34; Start 05/06/20 at 09:00; Stop 08/04/20 at 08:59 Naloxone HCl (Narcan) 0.1 mg Q2M PRN IVP RR<8; Start 05/05/20 at 18:00; Stop 08/03/20 at 17:59 Nicotine (Nicoderm) 1 patch Q24H TDERMAL Last administered on 05/08/20at 21:08; Start 05/06/20 at 22:00; Stop 08/04/20 at 21:59 Ondansetron HCl (Zofran) 4 mg Q4H PRN IVP Nausea & Vomiting Last administered on 05/06/20at 15:01; Start 05/05/20 at 20:45; Stop 06/04/20 at 20:44 Pantoprazole (Protonix) 40 mg BEDTIME ORAL Last administered on 05/08/20at 21:02; Start 05/05/20 at 21:00; Stop 06/04/20 at 20:59 Plan: I spent over sixty minutes in consultation today. A&O x 3. Patient seen with RN Maxwell & PT Tamiko. Discussed with surgeon Dr Petit in- detail multiple times the past 24 hours. GI: +BS + flatus after ALIF. Will start Colace BID stool softeners. Pt will use prune juice at home, as she is normally very regular with BMs. Better incentive spirometer usage has normalized fevers. 50-year tobacco smoker. Breathing comfortably on room air. Denies SOB or Chest Pain. Back dressing clean and dry; changed by Dr. Petit yesterday @ bedside. Pt tolerated full liquids for breakfast. No emesis. BP high-normal off home BP meds. Will restart verapamil once pt returns home. Good urine output, but pt FAILED d/c adame trial yesterday am. Dr Petit ordered to re-insert Adame last night. 450cc output. Dosed with flomax & urecholine now; will d/c Adame soon, and see if can void urine on her own; if not will replace Adame. Still needs assist to ambulate out of bed. Pt's two daughters are EXTREMELY competent, and feel comfortable that the two sisters will be able to assist their mom with ambulation. Both daughters are VERY confident that they can take care of their mother at [facility]. FWW & bedsisde commode provided for home usage. Back brace at bedside. SCDs for mechanical prophylaxis against deep venous thrombosis and PEs. No symptoms or clinical reason to suspect DVTs at this time. Daughter picked-up [place] pills already at local [facility]. Pain level 5 / 10, with moving; minimal pain at rest. MAR medication list reviewed. Will d/c morphine at this time. Continue norco [which contains tylenol] for both pain control and as anti- pyretic. Wound dressings clean & dry; no signs for infection. Pt & surgeon agree with plan. Paul Eastman MD May 09, 2020 11:08
--- NOTE | 2020-05-09 14:14 | Diagnostic Imaging Report ---
INDICATION: Pain, intraoperative TECHNIQUE: Intraoperative imaging Fluoroscopy time: 40 seconds Total dose: [id number] mGym2 Total number of images: 7 COMPARISON: None FINDINGS: Intraoperative images demonstrate surgical tool projected at the anterior aspect of the L4-5 disc. Subsequent images document placement of anterior fusion hardware at the lower lumbar spine IMPRESSION:
--- NOTE | 2020-05-09 16:22 | NUR ---
PT Note Attempted to see patient x 2. Patient c/o felling exhausted after being up on the commode. After ~30 minutes, attempted to see patient again but patient c/o still feeling exhausted and refused physical therapy.
--- NOTE | 2020-05-09 16:37 | NUR ---
NURSE NOTES: Spoke to regarding patient and new CBC and BMP order received. Order read back and carried out.
[2020-05-09 17:53] LABS: BASOPHILS % (AUTO) 0.9 % (0.0-2.0); EOSINOPHILS % (AUTO) 2.1 % (0.0-3.0); HEMATOCRIT 27.4 % (37.0-47.0); HEMOGLOBIN 8.9 G/DL (12.0-16.0); MEAN CORPUSCULAR VOLUME 98 FL (80-99); MONOCYTES % (AUTO) 8.8 % (1.0-10.0); NEUTROPHILS % (AUTO) 81.2 % (45.0-75.0); PLATELET COUNT 149 K/UL (150-450); RED CELL DISTRIBUTION WIDTH 15.4 % (11.6-14.8); WHITE BLOOD COUNT 6.9 K/UL (4.8-10.8)
[2020-05-09 17:57] LABS: CALCIUM 8.8 MG/DL (8.5-10.1); CREATININE 1.3 MG/DL (0.55-1.30); POTASSIUM 4.3 MMOL/L (3.5-5.1)
--- NOTE | 2020-05-09 19:44 | NUR ---
NURSE HAND-OFF: Important Events on Shift: continue to encourage pt to get out of bed Patient Status: stable Diet: full liquid Pending Orders: Pending Results/Labs: Pending MD notification: Latest Vital Signs: Temperature 98.0 , Pulse 117 , B/P 116 /60 , Respiratory Rate 19 , O2 SAT 95 , Nasal Cannula, O2 Flow Rate 2.0 . Vital Sign Comment: Latest Hargrove Fall Score: 45 Fall Risk: High Risk Safety Measures: Call light Within Reach, Bed Alarm , Side Rails Side Rails x2, Bed position Low and Locked. Fall Precautions: Yellow Socks Yellow Gown Door Sign Patient Fall Education Report given to . Addendum: 05/09/20 at 5 by Live Howard RN report given to Linh
--- NOTE | 2020-05-09 19:50 | NUR ---
NURSE NOTES: Receive a call from Dr. Eastman and update lab results, pt's conditions, VSS and pain medication usage. New orders received as NS 1L 100ml/hr IV, [place] 10/325 1t po prn for pain scale 1-10, and upgrade diet as regular. Read back orders. Order noted and carried out.
--- NOTE | 2020-05-09 20:00 | NUR ---
NURSE NOTES: RECEIVED PATIENT LYING IN BED, AWAKE, ALERT/ORIENTED X4, VERBALLY RESPONSIVE, COMPLAINED OF BACK PAIN 03/02, CHRONIC, EDUCATED PATIENT ON PAIN MANAGEMENT, VERBALIZED UNDERSTANDING. IV INTACT TO LEFT FOREARM/GAUGE 22, TOLERATING IV FLUIDS, NO REDNESS/SWELLING NOTED TO SITE. NO SIGNS AND SYMPTOMS OF ACUTE CARDIO RESPIRATORY DISTRESS/SHORTNESS OF BREATH, DENIES CHEST PAIN, NO PERIPHERAL EDEMA NOTED. S/P LEFT L5-S1 DECOMPRESSION, RESECTION SYNOVIAL CYSTS-L4-L5, L5-S1 ALIF, DRESSINGS DRY AND INTACT TO ABDOMEN AND BACK, NO STAIN NOTED. REGULAR PO DIET TO START 05/10, PATIENT AWARE. SIDE RAILS UP X2 FOR MOBILITY, BED IN LOWEST POSITION FOR SAFETY, ENCOURAGED PATIENT TO UTILIZE CALL LIGHT FOR ASSISTANCE, PATIENT VERBALIZED UNDERSTANDING, CONTINUE WITH CURRENT PLAN OF CARE. NAD. DISCHARGE PLAN HOME.
[2020-05-09] MEDS: Atorvastatin 20mg tab ORAL SCH (20:33)
[2020-05-10 04:00] VITALS: BP 137/67
--- NOTE | 2020-05-10 07:01 | NUR ---
NURSE HAND-OFF: Important Events on Shift:[DCP HOME WHEN STABLE,(FWW/BACK BRACE/LARGE BSC AT BEDSIDE FOR PATIENT UPON DISCHARGE) ] Patient Status: [NO BOWEL MOVEMENT SINCE 05/04, DR. LAGOS AWARE, CONTINUE TO GIVE STOOL SOFTENER/PRUNE JUICE, NNO] Diet: [REGULAR] Pending Orders: [N/A] Pending Results/Labs:[N/A] Pending MD notification:[N/A] Latest Vital Signs: Temperature 97.9 , Pulse 101 , B/P 137 /67 , Respiratory Rate 20 , O2 SAT 94 , Room Air, O2 Flow Rate 2.0 . Vital Sign Comment: [STABLE, AFEBRILE] Latest Hargrove Fall Score: 45 Fall Risk: High Risk Safety Measures: Call light Within Reach, Bed Alarm , Side Rails x2, Bed position Low and Locked. Fall Precautions: Yellow Socks Yellow Gown Door Sign Patient Fall Education Report given to [LATRICIA CASTRO].
[2020-05-10] MEDS: HYDROcodone/Acetamin 10/325 tab ORAL PRN (07:37)
[2020-05-10 08:00] VITALS: BP 131/66
--- NOTE | 2020-05-10 08:30 | NUR ---
NURSE NOTES: Received report from Shivani MCQUEEN. Patient is awake and oriented, in no apparent distress, grasping abdomen d/t cramping, patient's only complaint is "gas like" abdominal pain. Patient has not had BM since 05/04/20 per PM shift nurse. Bowel sounds present and active in all [address] Eastman is aware of no BM. IV intact, patent, running IVF per order. Patient's own BSC, walker, back brace at bedside. Fall precautions maintained. Patient updated on plan of care for the day. Side rails upx2, bed low and locked, call light within reach.
--- NOTE | 2020-05-10 08:37 | NUR ---
NURSE NOTES: Spoke to regarding patient and BM and new Magnesium citrate order received. Order read back and carried out.
[2020-05-10] MEDS ORDERED: VERAPAMIL HCL120 MG PO (09:00)
[2020-05-10] MEDS ORDERED: Simethicone 80mg tab ORAL SCH (09:00)
[2020-05-10] MEDS ORDERED: Simethicone 80mg tab ORAL PRN (09:00)
--- NOTE | 2020-05-10 09:12 | Discharge Summary ---
Discharge Summary Hospital Course Date of Admission May 05, 2020 at 06:14 Date of Discharge May 10, 2020 Admitting Diagnosis HPI Radha Hawkins is a 74 year old female who was admitted on May 05, 2020 at 06:14 for L4-5, L5-S1 Mechanical Pain Consultations PAUL LAGOS MD, Pain Management Procedures lumbar spine fusion surgery, ALIF & PLIF Discharge Condition Upon Discharge: stable Discharge Vital Signs Last Vital Signs Date Time Temp Pulse Resp B/P (MAP) Pulse Ox O2 Delivery O2 Flow Rate FiO2 05/10/20 08:00 98.1 109 20 131/66 (87) 91 05/09/20 21:00 Room Air 05/09/20 09:00 2.0 Discharge Disposition Patient will be discharged to the care of her very competent daughters, who will assist pt with all ADL. Discharge Instructions Discharge Instructions Follow up with: Dr Petit in outpt surgical clinic. Diet: regular Activity: ambulate w/ assist only, as tolerated Special Instructions pt to contact her [place] doctors to review appropriate blood pressure medicine dosing For Surgical Patients Dressing Care: keep dry and clean Paul Lagos MD May 10, 2020 09:12
[2020-05-10] MEDS: Bethanechol 25mg Tab ORAL SCH (09:20)
[2020-05-10] MEDS: DULoxetine 30mg cap ORAL SCH (09:20)
[2020-05-10] MEDS: Tamsulosin 0.4mg cap ORAL SCH (09:20)
[2020-05-10] MEDS: Docusate 100mg cap ORAL SCH (09:21)
--- NOTE | 2020-05-10 09:22 | Pain Management Progress Note ---
Allergies: Coded Allergies: ASPIRIN (Verified Allergy, Intermediate, vomiting, 05/04/20) CODEINE (Verified Allergy, Intermediate, vomiting, 05/04/20) Vitals Vital Signs Date Time Temp Pulse Resp B/P (MAP) Pulse Ox O2 Delivery O2 Flow Rate FiO2 05/10/20 08:00 98.1 109 20 131/66 (87) 91 05/10/20 04:00 97.9 101 20 137/67 (90) 94 Medications Current Medications Acetaminophen/ Hydrocodone Bitart ([place] 10/325) 1 tab Q3H PRN ORAL For Pain Last administered on 05/10/20at 07:37; Start 05/05/20 at 18:00; Stop 05/12/20 at 17:59 Al Hydroxide/Mg Hydroxide (Mylanta) 30 ml Q6H PRN ORAL gerd; Start 05/05/20 at 20:45; Stop 06/04/20 at 20:44 Allopurinol (allopurinoL) 300 mg DAILY ORAL Last administered on 05/09/20at 08:34; Start 05/06/20 at 09:00; Stop 06/05/20 at 08:59 Atorvastatin Calcium (Lipitor) 40 mg BEDTIME ORAL Last administered on 05/09/20at 20:33; Start 05/06/20 at 21:00; Stop 08/04/20 at 20:59 Bethanechol Chloride (Urecholine) 25 mg THREE TIMES A DAY ORAL Last administered on 05/09/20at 17:18; Start 05/09/20 at 10:46; Stop 06/08/20 at 10:45 Bisacodyl (Dulcolax) 10 mg Q12HR PRN RECTAL Constipation; Start 05/10/20 at 09:00; Stop 08/08/20 at 08:59; Status UNV Clonidine HCl (Catapres Tab) 0.1 mg Q8H PRN ORAL SBP > 160mmHg; Start 05/06/20 at 15:30; Stop 08/04/20 at 15:29 Diphenhydramine HCl (Benadryl) 25 mg Q6H PRN ORAL Itching; Start 05/05/20 at 20:45; Stop 06/04/20 at 20:44 Docusate Sodium (Colace) 100 mg TWICE A DAY ORAL Last administered on 05/09/20at 17:18; Start 05/08/20 at 20:00; Stop 06/07/20 at 19:59 Duloxetine HCl (Cymbalta) 30 mg DAILY ORAL Last administered on 05/09/20at 08:34; Start 05/06/20 at 09:00; Stop 08/04/20 at 08:59 Magnesium Citrate (Citrate Of Magnesia) 300 ml ONCE ORAL ; Start 05/10/20 at 10:00; Stop 05/10/20 at 11:00 Naloxone HCl (Narcan) 0.1 mg Q2M PRN IVP RR<8; Start 05/05/20 at 18:00; Stop 08/03/20 at 17:59 Nicotine (Nicoderm) 1 patch Q24H TDERMAL Last administered on 05/09/20at 22:06; Start 05/06/20 at 22:00; Stop 08/04/20 at 21:59 Ondansetron HCl (Zofran) 4 mg Q4H PRN IVP Nausea & Vomiting Last administered on 05/06/20at 15:01; Start 05/05/20 at 20:45; Stop 06/04/20 at 20:44 Pantoprazole (Protonix) 40 mg BEDTIME ORAL Last administered on 05/09/20at 20:33; Start 05/05/20 at 21:00; Stop 06/04/20 at 20:59 Simethicone (Mylicon) 80 mg 0900 ONCE ORAL ; Start 05/10/20 at 09:00; Stop 05/10/20 at 09:01; Status UNV Simethicone (Mylicon) 80 mg QID PRN ORAL gas bloating; Start 05/10/20 at 09:00; Stop 08/08/20 at 08:59; Status UNV Sodium Chloride 1,000 ml @ 100 mls/hr Q10H IV Last administered on 05/10/20at 06:31; Start 05/09/20 at 20:00; Stop 06/08/20 at 19:59 Tamsulosin HCl (Flomax) 0.4 mg DAILY ORAL Last administered on 05/09/20at 10:58; Start 05/09/20 at 10:46; Stop 06/08/20 at 10:45 Laboratory Laboratory Tests 05/09/20 17:40: White Blood Count 6.9, Red Blood Count 2.80L, Hemoglobin 8.9L, Hematocrit 27.4L, Mean Corpuscular Volume 98, Mean Corpuscular Hemoglobin 31.8H, Mean Corpuscular Hemoglobin Concent 32.5, Red Cell Distribution Width 15.4H, Platelet Count 149L, Mean Platelet Volume 7.5, Neutrophils (%) (Auto) 81.2H, Lymphocytes (%) (Auto) 7.0L, Monocytes (%) (Auto) 8.8, Eosinophils (%) (Auto) 2.1, Basophils (%) (Auto) 0.9, Sodium Level 129L, Potassium Level 4.3, Chloride Level 95L, Carbon Dioxide Level 28, Anion Gap 6, Blood Urea Nitrogen 18, Creatinine 1.3, Estimat Glomerular Filtration Rate 48.6, Glucose Level 113H, Calcium Level 8.8 Plan: I spent over sixty minutes in consultation today. Patient seen with RNs Maxwell & Michelle. Discussed with surgeon Dr Petit in- detail. GI: +BS + flatus after ALIF. Started Colace BID stool softeners. Nurses gave pt prune juice overnight. + abdominal bloating pain; trial simethicone; expect resolution after BM. Pt will use more prune juice at home, as she is normally very regular with BMs. Will dispense bottle of magnesium citrate for pt to take once she gets home. If daughters agree, may dose with dulcolax suppository prior to driving home. Labs checks. Hgb stable at 9. Creatinine normalized to preop 1.3 level. Platelets normalized. Mildly low sodium; gave IV NS throughout the night. Better incentive spirometer usage & ambulation to commode has normalized fevers. 50-year tobacco smoker. Breathing comfortably on room air. Denies SOB or Chest Pain. Back dressing clean and dry; changed by Dr. Petit Monday @ bedside. Pt tolerated regular diet for breakfast. No emesis. BP high-normal off home BP meds: 131/70 I instructed pt to contact her [place] doctors to discuss appropriate dosing of blood pressure meds, as BP has been [id number] while OFF of BP meds here at [facility]. Good urine output after IVF started & dosing with flomax & urecholine the past 24 hours. Pt still needs assist to ambulate out of bed. Pt's two daughters are EXTREMELY competent, and feel comfortable that the two sisters will be able to assist their mom with ambulation. Both daughters are VERY confident that they can take care of their mother at [facility]. FWW & bedsisde commode provided for home usage. Back brace at bedside. SCDs for mechanical prophylaxis against deep venous thrombosis and PEs. Daughter picked-up [place] pills already at local [facility]. Pain level 4-6 / 10, with moving; minimal pain at rest, except gas bloating. MAR medication list reviewed. Continue norco [which contains tylenol] for both pain control and as anti-pyretic. Wound dressings clean & dry; no signs for infection. Pt & surgeon agree with discharge plan for today after morning PT session. Paul Eastman MD May 10, 2020 09:22
--- NOTE | 2020-05-10 09:50 | NUR ---
NURSE NOTES: Received call from Dr. Petit. gave discharge order for today after patient works with PT. Order read back and entered.
[2020-05-10] MEDS ORDERED: Magnesium Citrate Liq Btl ORAL SCH (10:00)
--- NOTE | 2020-05-10 11:00 | NUR ---
NURSE NOTES: Home medications reviewed with Dr. Eastman. Per , continue all home medications except for blood pressure medications. educated patient to follow up with her primary care doctor at [place] regarding continuation of blood pressure medications, patient verbalized understanding.
--- NOTE | 2020-05-10 11:00 | NUR ---
NURSE NOTES: Per Dr. Eastman, give patient mag citrate and dulcolax (if requested) prior to discharge. Per MD, no need for patient to have BM prior to discharge.
--- NOTE | 2020-05-10 11:20 | NUR ---
NURSE NOTES: Patient discharged in no apparent distress. All belongings given to patient. IV removed intact. Patient provided with discharge education and verbalized understanding of provided education. Patient educated not to drive until cleared by Dr. Petit, patient verbalized understanding. Patient taken off unit via wheelchair, assisted by myself and charge auditor to private vehicle, accompanied by patient's daughter.
== END 2020-05-10 11:20 | disposition home or self-care (01) | DRG 460 ==
LOC: SDSOVERFLO 06:14 → 2E 16:58 → 3E 05-07 12:40
PROC: 0ST40ZZ Resection of Lumbosacral Disc, Open Approach (ICD-10-PCS; principal; 2020-05-05 07:00)
PROC: 0SG30A0 Fusion of Lumbosacral Joint with Interbody Fusion Device, Anterior Approach, Anterior Column, Open Approach (ICD-10-PCS; principal; 2020-05-05 07:00)
PROC: 01NB0ZZ Release Lumbar Nerve, Open Approach (ICD-10-PCS; principal; 2020-05-05 07:00)
PROC: 0SG00A0 Fusion of Lumbar Vertebral Joint with Interbody Fusion Device, Anterior Approach, Anterior Column, Open Approach (ICD-10-PCS; principal; 2020-05-05 07:00)
PROC: 00UT07Z Supplement Spinal Meninges with Autologous Tissue Substitute, Open Approach (ICD-10-PCS; principal; 2020-05-05 07:00)
PROC: 3E0U0GB Introduction of Recombinant Bone Morphogenetic Protein into Joints, Open Approach (ICD-10-PCS; principal; 2020-05-05 07:00)
PROC: 4A11X4G Monitoring of Peripheral Nervous Electrical Activity, Intraoperative, External Approach (ICD-10-PCS; principal; 2020-05-05 07:00)
PROC: 0ST20ZZ Resection of Lumbar Vertebral Disc, Open Approach (ICD-10-PCS; principal; 2020-05-05 07:00)
DX: M48.07 Spinal stenosis, lumbosacral region (principal); M54.16 Radiculopathy, lumbar region; M54.17 Radiculopathy, lumbosacral region; M53.2X6 Spinal instabilities, lumbar region; M48.061 Spinal stenosis, lumbar region without neurogenic claudication; F32.9 Major depressive disorder, single episode, unspecified; I10 Essential (primary) hypertension; E78.5 Hyperlipidemia, unspecified; G47.30 Sleep apnea, unspecified; I25.10 Atherosclerotic heart disease of native coronary artery without angina pectoris; M10.9 Gout, unspecified; M71.38 Other bursal cyst, other site; G89.18 Other acute postprocedural pain
CPT/HCPCS: 36415; 72020; 76000; 80048; 83735; 85007; 85025; 86850; 86900; 86901; 86920; 87081; 94003; 94150; J2180; J2370; J2405; J7030; U0002

== ENCOUNTER 2020-07-01 15:59 | Inpatient (IN) | payer OTHER ==
[~2020-07-01] VITALS: Ht 162.6 cm; Wt 90.7 kg
[~2020-07-01 15:59] MED LIST: BUPROPION HCL150 M3 ORAL; CYMBALTA30 MG ORAL; HYDROCHLOROTHIA25 MG ORAL; LIPITOR40 MG ORAL; LISINOPRIL20 MG ORAL; MOBIC15 MG ORAL; NICOTINE GUM4 MG BC; OMEPRAZOLE20 M2 ORAL; TRAMADOL HCL50 MG ORAL; VERAPAMIL HCL120 MG PO; ZESTRIL40 MG ORAL; ZOFRAN4 M3 ORAL; ZYLOPRIM300 MG ORAL
--- NOTE | 2020-07-01 16:20 | NUR ---
ED Nurse Note: Pt walked in from home. Per pt, she had spine surgery here on 05/05/20. She states that she has a abscess on her spine that is causeing her pain and a hernia that is also causing her pain. she is abulatory with a walker. industrial cleaning technician took her for a CT. She staes her last BM was last night. Her vital signs are stable as documented on RA.
[2020-07-01 16:30] VITALS: BP 114/58
--- NOTE | 2020-07-01 16:34 | NUR ---
ED Nurse Note: Patient to CT scan in wheelchair.
--- NOTE | 2020-07-01 16:48 | NUR ---
ED Nurse Note: pt back from xray Addendum: 07/01/20 at [address] scan
--- NOTE | 2020-07-01 17:06 | Emergency Room Report ---
History of Present Illness General Chief Complaint: Abdominal Pain Source: Patient Present Illness HPI Patient is a 74-year-old female who presents for increased left lower abdominal pain. Recent history of anterior approach spinal surgery. Had noticed increased pain to the left lower abdomen. This had sudden onset gradually worsening. Severe pain to the left lower abdomen. 1 episode of vomiting this morning. Patient does not recall how this happened. 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 COVID-19 Screening: Negative COVID-19 COVID-19 Testing [place] [facility] [place] Past Medical History: see triage record Last Menstrual Period: na Reviewed Nursing Documentation: PMH: Agreed; PSxH: Agreed Nursing Documentation-PMH Past Medical History: No History, Except For Hx Cardiac Problems: Yes Hx Hypertension: Yes Hx COPD: Yes Hx Cancer: No Hx Gastrointestinal Problems: Yes - abd surgery Hx Neurological Problems: No - back surgery Hx Cerebrovascular Accident: Yes - 2014 Hx Neurologic Surgery: Yes - brain stents and coil placement Review of Systems All Other Systems: limited - Limited by poor historian Physical Exam Vital Signs Date Time Temp Pulse Resp B/P (MAP) Pulse Ox O2 Delivery O2 Flow Rate FiO2 07/01/20 16:19 98.2 89 24 114/58 (76) 99 Room Air Sp02 EP Interpretation: reviewed, normal General Appearance: no apparent distress, alert, obese, Chronically Ill Head: atraumatic ENT: normal ENT inspection, hearing grossly normal, normal voice Neck: normal inspection, full range of motion, supple, no bony tend Respiratory: normal inspection, lungs clear, normal breath sounds, no respiratory distress, no retraction, no wheezing Cardiovascular #1: regular rate, rhythm, no edema Gastrointestinal: normal inspection, normal bowel sounds, soft, no guarding, other - large left side abdominal wall swelling with marked tenderness. Genitourinary: no CVA tenderness Musculoskeletal: normal inspection, back normal, normal range of motion Neurologic: alert, motor strength/tone normal, quality process auditor III-XII nml as tested, oriented x3, responsive, speech normal, normal inspection Psychiatric: normal inspection, judgement/insight normal, mood/affect normal Skin: other Medical Decision Making Diagnostic Impression: Primary Impression: Abdominal wall fluid collections ER Course Patient presented left-sided abdominal pain. Differential diagnosis include was not limited to hernia, bowel obstruction, hematoma, abscess, seroma among others. Because of complexity of patient's case laboratory tests and imaging studies were ordered. CT imaging was ordered due to patient's recent increased abdominal distention and discomfort. Laboratory testing showed some evidence of urinary tract infection. Patient was given IV antibiotics. CT imaging showed large fluid collection in the left lower quadrant. Dr. Gagnon was contacted for surgical consult and was informed of CT findings.. Dr. Arriola was contacted for [employer] [facility] due to primary request. Labs Test 07/01/20 17:05 White Blood Count 4.2 K/UL (4.8-10.8) Red Blood Count 3.71 M/UL (4.20-5.40) Hemoglobin 11.0 G/DL (12.0-16.0) Hematocrit 35.0 % (37.0-47.0) Mean Corpuscular Volume 94 FL (80-99) Mean Corpuscular Hemoglobin 29.7 PG (27.0-31.0) Mean Corpuscular Hemoglobin Concent 31.4 G/DL (32.0-36.0) Red Cell Distribution Width 18.0 % (11.6-14.8) Platelet Count 261 K/UL (150-450) Mean Platelet Volume 6.1 FL (6.5-10.1) Neutrophils (%) (Auto) 68.7 % (45.0-75.0) Lymphocytes (%) (Auto) 21.1 % (20.0-45.0) Monocytes (%) (Auto) 7.8 % (1.0-10.0) Eosinophils (%) (Auto) 0.9 % (0.0-3.0) Basophils (%) (Auto) 1.5 % (0.0-2.0) Prothrombin Time 10.7 SEC (9.30-11.50) Prothromb Time International Ratio 1.0 (0.9-1.1) Activated Partial Thromboplast Time 25 SEC (23-33) Urine Color Yellow Urine Appearance Slightly cloudy Urine pH 5 (4.5-8.0) Urine Specific [place] 1.010 (1.005-1.035) Urine Protein 1+ (NEGATIVE) Urine Glucose (UA) Negative (NEGATIVE) Urine Ketones 1+ (NEGATIVE) Urine Blood Negative (NEGATIVE) Urine Nitrite Negative (NEGATIVE) Urine Bilirubin 1+ (NEGATIVE) Urine Ictotest Negative (NEGATIVE) Urine Urobilinogen 1 MG/DL (0.0-1.0) Urine Leukocyte Esterase 1+ (NEGATIVE) Urine RBC 0 /HPF (0 - 2) Urine WBC 10-15 /HPF (0 - 2) Urine Squamous Epithelial Cells Many /LPF (NONE/OCC) Urine Bacteria Moderate /HPF (NONE) Sodium Level 138 MMOL/L (136-145) Potassium Level 3.7 MMOL/L (3.5-5.1) Chloride Level 101 MMOL/L (98-107) Carbon Dioxide Level 28 MMOL/L (21-32) Anion Gap 9 mmol/L (5-15) Blood Urea Nitrogen 19 mg/dL (7-18) Creatinine 1.2 MG/DL (0.55-1.30) Estimat Glomerular Filtration Rate 53.2 mL/min (>60) Glucose Level 88 MG/DL (74-106) Calcium Level 9.8 MG/DL (8.5-10.1) Total Bilirubin 0.4 MG/DL (0.2-1.0) Aspartate Amino Transf (AST/SGOT) 17 U/L (15-37) Alanine Aminotransferase (ALT/SGPT) 23 U/L (12-78) Alkaline Phosphatase 115 U/L (46-116) Total Protein 8.5 G/DL (6.4-8.2) Albumin 3.5 G/DL (3.4-5.0) Globulin 5.0 g/dL Albumin/Globulin Ratio 0.7 (1.0-2.7) Lipase 149 U/L (73-393) Last Vital Signs Date Time Temp Pulse Resp B/P (MAP) Pulse Ox O2 Delivery O2 Flow Rate FiO2 07/01/20 16:30 98.7 70 25 114/58 99 Room Air Status: unchanged Disposition: ADMITTED INPATIENT Condition: Stable Bridger Feliciano MD Jul 01, 2020 17:06
--- NOTE | 2020-07-01 17:27 | Diagnostic Imaging Report ---
EXAM: CT Abdomen and Pelvis Without Intravenous Contrast CLINICAL HISTORY: ABD PAIN TECHNIQUE: Axial computed tomography images of the abdomen and pelvis without intravenous contrast. CTDI is 36.6 mGy and DLP is 1440.1 mGy-cm. One or more of the following dose reduction techniques were used: automated exposure control, adjustment of the mA and/or kV according to patient size, use of iterative reconstruction technique. COMPARISON: No relevant prior studies available. FINDINGS: Lung bases: Unremarkable. Mediastinum: Small hiatal hernia. ABDOMEN: Liver: Unremarkable. Gallbladder and bile ducts: Unremarkable. Pancreas: Unremarkable. Spleen: Unremarkable. Adrenals: Unremarkable. Kidneys and ureters: Few cortical cysts within the kidneys bilaterally. No hydronephrosis. No nephrolithiasis. Stomach and bowel: Colonic diverticulosis most pronounced in the sigmoid colon. Mild mucosal thickening within the sigmoid colon in the left lower quadrant could potentially represent very mild diverticulitis or nonspecific colitis. Moderate colonic stool burden. PELVIS: Appendix: Status post appendectomy. Bladder: Unremarkable. No stones. Reproductive: Status post hysterectomy. ABDOMEN and PELVIS: Intraperitoneal space: Unremarkable. No free air. No significant fluid collection. Bones/joints: Status post L4-5 and L5-S1 anterior instrumented fusion. Inflammatory changes within the soft tissues immediately anterior to the spine or favored postsurgical if the surgery was recent. Soft tissues: Large fluid collection within the left lower quadrant subcutaneous fat measuring 10.0 x 10.8 x 13.7 cm. Vasculature: Unremarkable. Lymph nodes: Unremarkable. IMPRESSION: 1. Large fluid collection within the left lower quadrant subcutaneous fat measuring 10.0 x 10.8 x 13.7 cm. Appearance is most suggestive of a resolving hematoma/seroma. Abscess is considered less likely. 2. Colonic diverticulosis most pronounced in the sigmoid colon. Mild mucosal thickening within the sigmoid colon in the left lower quadrant could potentially represent very mild diverticulitis or nonspecific colitis. 3. Moderate colonic stool burden. Correlate for constipation. 4. Small hiatal hernia. 5. Status post hysterectomy. 6. Status post L4-5 and L5-S1 anterior instrumented fusion. Inflammatory changes within the soft tissues immediately anterior to the spine are favored postsurgical if the surgery was recent. No evidence of hardware complication.
[2020-07-01 17:31] LABS: BASOPHILS % (AUTO) 1.5 % (0.0-2.0); EOSINOPHILS % (AUTO) 0.9 % (0.0-3.0); LYMPHOCYTES % (AUTO) 21.1 % (20.0-45.0); MEAN CORPUSCULAR VOLUME 94 FL (80-99); MONOCYTES % (AUTO) 7.8 % (1.0-10.0); NEUTROPHILS % (AUTO) 68.7 % (45.0-75.0); PLATELET COUNT 261 K/UL (150-450); RED BLOOD COUNT 3.71 M/UL (4.20-5.40); WHITE BLOOD COUNT 4.2 K/UL (4.8-10.8)
[2020-07-01 17:39] LABS: APPEARANCE,URINE SLIGHTLY CLOUDY; BILIRUBIN, URINE 1+ (NEGATIVE); GLUCOSE, URINE (UA) NEGATIVE (NEGATIVE); KETONES,URINE 1+ (NEGATIVE); LEUKOCYTE ESTERASE ,URINE 1+ (NEGATIVE); NITRITE,URINE NEGATIVE (NEGATIVE); PH,URINE 5 (4.5-8.0); PROTEIN,URINE 1+ (NEGATIVE); UROBILINOGEN,URINE 1 MG/DL (0.0-1.0)
[2020-07-01 17:43] LABS: COLOR,URINE YELLOW
[2020-07-01] MEDS ORDERED: Morphine Sulfate 4mg/ml Inj (IV USE ONLY) IVP ONE (17:45)
[2020-07-01 17:46] LABS: CALCIUM 9.8 MG/DL (8.5-10.1); CREATININE 1.2 MG/DL (0.55-1.30); POTASSIUM 3.7 MMOL/L (3.5-5.1)
[2020-07-01 17:51] LABS: ALBUMIN 3.5 G/DL (3.4-5.0); ALBUMIN/GLOBULIN RATIO 0.7 (1.0-2.7); BILIRUBIN,TOTAL 0.4 MG/DL (0.2-1.0)
[2020-07-01 18:30] VITALS: BP 123/67
[2020-07-01] MEDS ORDERED: cefTRIAXone 1 GM in NS 55 ML IVPB ONE (18:45)
--- NOTE | 2020-07-01 19:13 | NUR ---
HAND-OFF: Report given to Fern .
--- NOTE | 2020-07-01 21:00 | NUR ---
ED Nurse Note: Pt resting in bed with eyes open, non-labored breathing, no signs of distress, will continue to monitor
[2020-07-01 21:30] VITALS: BP 140/62
[2020-07-01] MEDS ORDERED: Ketorolac 30mg Inj IV ONE (23:30)
--- NOTE | 2020-07-01 23:30 | NUR ---
ED Nurse Note: Pt transferred to lyle bed and endorsed to Diogenes,RN
[2020-07-02] VITALS (7 sets, daily range): BP systolic 97–132; BP diastolic 52–74
--- NOTE | 2020-07-02 01:25 | NUR ---
TRANSFER TO FLOOR: Patient transferred to as ordered, per Dr Burk. Report given to LATRICIA Esposito. Belongings and medications given to . Family and or S/O informed of transfer.
--- NOTE | 2020-07-02 01:50 | NUR ---
NURSE NOTES: Received pt from Fern ROME from ED. Belonging list reviewed with ED nurse. Patient came to the floor VIA gurney. Pt is A/O x4. Pt is reporting pain at this time of 410 but is able to tolerant it. No acute distress noted at this time. Pt was placed on the public improvement inspector 5 lead running NSR. Pt is in on RM air saturating at 94%. Pt skin is in tack. IV site is on right forearm 22G s/l. Patient and flushed. No erythema or bleeding noted. Pt was oriented to room and call light. Bed in lowest position, locked with side rail up x 2. Pt is a fall risk and was educated to call before attempting to get up. Call light and belongings with in reach. Will contact Doctor for admission orders. Will continue to monitor patient.
--- NOTE | 2020-07-02 04:18 | NUR ---
NURSE NOTES: Called Dr. Arriola left a message requesting admission orders. Awaiting call back. Will continue to monitor pt.
--- NOTE | 2020-07-02 04:25 | NUR ---
NURSE NOTES: Spoke with Dr. Arriola, Doctor will put in orders.
[2020-07-02] MEDS ORDERED: traMADol 50mg tab ORAL PRN (04:45)
--- NOTE | 2020-07-02 06:31 | NUR ---
NURSE HAND-OFF REPORT: Important Events on Shift: Pt came to Tele @ 01:49. Pt is A/O x4. IV S/L 22G Right FA. Patient Status: No acute distress Diet: NPO @ midnight per ED Pending Orders: Pending Results/Labs: Pending MD notification: Latest Vital Signs: Temperature 97.8 , Pulse 95 , B/P 110 /72 , Respiratory Rate 18 , O2 SAT 94 , Room Air, O2 Flow Rate . Vital Sign Comment: EKG Rhythm: Sinus Rhythm Rhythm change?: N MD Notified?: - MD Response: Latest [place] Fall Score: 45 Fall Risk: High Risk Safety Measures: Call light Within Reach, Bed Alarm Zone 1, Side Rails Side Rails x2, Bed position Low and Locked. Fall Precautions: Yellow Socks Yellow Gown Door Sign Patient Fall Education Report given to . Addendum: 07/02/20 at 0736 by Cate Schwartz RN Report given to Veronika ROME and Baylee ROME.
--- NOTE | 2020-07-02 07:39 | NUR ---
NURSE NOTES: Received pt report from LATRICIA Gabriel. Pt shows no signs of pain or distress. No signs of respiratory distress, she is on RA. Abraham 16french was placed on 07/01/20 it is patent and intact. Left Forearm 22gauge IV is patent and intact running NS at 80 ml/hr. Pt also has a second IV on the right forearm 22 gauge that is patent and intact. No signs of swelling, no redness, no infiltration, no phlebitis on both the right and left IV sites. She has GT patent and intact with no residual, running Glucerna 1.2 at 50 cc/hr. HOB is at 35 degrees. Bed is locked, in the lowest position and call light is within reach. Bed rails x3, with padding on rails for seizure precautions. Fall and aspiration precautions also in place. Dr. Jorgensen has placed a transfer order to Med-Surg. Will continue to monitor. Addendum: 07/02/20 at 826 by Baylee Mao RN Input not under wrong patient Addendum: 07/02/20 at 826 by Baylee Mao RN Wrong patient
--- NOTE | 2020-07-02 08:23 | NUR ---
NURSE NOTES: Received patient report from LATRICIA Esposito. Patient is asleep in bed. Reported was that she is AO x4. Patient shows no signs of distress at the time. She is on room air. IV is intact . Bed is in the lowest position, call light is within reach, side rails up x3. Will continue to monitor. Per maintenance technician 3rd shift, Dr. Arriola will place the rest of the orders in the AM.
[2020-07-02] MEDS: BuPROPion SR 150mg tab ORAL SCH ×2 (09:44→21:15)
--- NOTE | 2020-07-02 13:32 | NUR ---
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 98.7 HR 70 RR 25 B/P 114/58 WBC 4.[address]=Large fluid collection within the left lower quadrant subcutaneous fat measuring 10.0 x 10.8 x 13.7 cm. Appearance is most suggestive of a resolving hematoma/seroma. Abscess is considered less likely. IS: CEFTRIAXONE IV MORPHINE IV TORADOL IV ADMITTED TO TELE @ 0124 TELE STATUS DCP RETURN HOME
--- NOTE | 2020-07-02 14:01 | Consultation ---
History of Present Illness General Date patient seen: Jul 02, 2020 Reason for Hospitalization: Abdominal Pain Present Illness HPI 74-year-old female recent anterior approach spinal surgery lumbar had identified some lower abdominal left enlargement and discomfort. Was seen by her prior vascular surgeon for exposure and identified to have a large abdominal abnormality considered potentially be a hernia. Patient was been having emesis daily for about a month now feeling discomfort constipated and was sent to vascular for evaluation at which time was identified to have a very large hematoma potentially bleeding and admitted for the care management monitoring. Surgery called to eval assist with care. Patient seen, patient by, chart reviewed. Patient states she did have abdominal pain for few weeks now and has been identifying this enlarging mass. She has felt very constipated and required stool softeners. She has not had any bleeding identified with her stool or emesis. She has been tolerating some diet. Allergies: Coded Allergies: ASPIRIN (Verified Allergy, Intermediate, vomiting, 05/04/20) CODEINE (Verified Allergy, Intermediate, vomiting, 05/04/20) COVID-19 Screening Contact w/high risk pt: No Experienced COVID-19 symptoms?: No Medication History Scheduled Allopurinol* (Zyloprim*), 300 MG ORAL DAILY, (Reported) Atorvastatin Calcium* (Lipitor*), 40 MG ORAL BEDTIME, (Reported) Bupropion Hcl* (Bupropion Hcl Sr*), 150 MG ORAL EVERY 12 HOURS, (Reported) Omeprazole (Omeprazole), 20 MG ORAL DAILY, (Reported) Scheduled PRN Tramadol Hcl* (Ultram*), 50 MG ORAL DAILY PRN for For Pain, (Reported) Miscellaneous Medications Nicotine Polacrilex (Nicotine Gum), 4 MG BC, (Reported) Patient History History Provided By: Patient Healthcare decision maker Resuscitation status Advanced Directive on File Yes Past Medical/Surgical History Past Medical/Surgical History: (1) Abdominal wall bulge (2) Abdominal wall fluid collections (3) Status post lumbar spine operation Review of Systems Review of Symptoms General ROS: no weight loss or fever Psychological ROS: no depression or mood changes, no memory loss Ophthalmic ROS: no visual changes or eye irritation ENT ROS: no nasal congestion, hearing loss, dizziness Allergy and Immunology ROS: no allergic symptoms or urticaria Hematological and Lymphatic ROS: no swollen glands, unusual bleeding or bruising Endocrine ROS: no polyuria, polydipsia, weight changes, temperature intolerance Respiratory ROS: no cough, shortness of breath, or wheezing Cardiovascular ROS: no chest pain or dyspnea on exertion Gastrointestinal ROS: denies abdominal pain, bright red blood in stool. Musculoskeletal ROS: no myalgias or arthralgias Neurological ROS: no TIA or stroke symptoms Dermatological ROS: no new or changing skin lesions, rashes or pruritis Physical Exam Physical Exam General appearance: alert, cooperative, no distress, appears stated age Head: Normocephalic, without obvious abnormality, atraumatic Eyes: conjunctivae/corneas clear. PERRL, EOM's intact. Fundi benign Throat: Lips, mucosa, and tongue normal. Teeth and gums normal Neck: supple, symmetrical, trachea midline, no adenopathy, thyroid: not enlarged, symmetric, no tenderness/mass/nodules, no carotid bruit and no JVD Lungs: clear to auscultation bilaterally Heart: regular rate and rhythm, S1, S2 normal, no murmur, click, rub or gallop Abdomen: soft, non-tender. Bowel sounds normal. No masses, no organomegaly. left lower quadrant hematoma stable Extremities: extremities normal, atraumatic, no cyanosis or edema Pulses: 2+ and symmetric Skin: Skin color, texture, turgor normal. No rashes or lesions Neurologic: Grossly normal Last 24 Hour Vital Signs Date Time Temp Pulse Resp B/P (MAP) Pulse Ox O2 Delivery O2 Flow Rate FiO2 07/02/20 12:00 98.1 88 20 130/63 (85) 95 07/02/20 10:14 97.8 07/02/20 09:00 Room Air 07/02/20 08:00 98.1 89 20 131/72 (91) 93 07/02/20 08:00 92 07/02/20 04:00 97.8 95 18 110/72 (85) 94 07/02/20 04:00 95 07/02/20 02:19 Room Air 07/02/20 01:50 89 07/02/20 01:50 97.9 93 22 97/52 (67) 94 07/02/20 01:24 98.0 68 18 132/70 100 Room Air 07/02/20 00:15 98.0 70 18 132/70 100 Room Air 07/01/20 21:30 98.4 72 18 140/62 98 Room Air 07/01/20 18:30 98.4 78 22 123/67 98 Room Air 07/01/20 16:30 98.7 70 25 114/58 99 Room Air 07/01/20 16:30 90 25 Room Air 07/01/20 16:19 98.2 89 24 114/58 (76) 99 Room Air Intake and Output 07/01/20 07/02/20 19:00 07:00 Intake Total 0 ml Balance 0 ml Intake Oral 0 ml # Voids 1 Laboratory Tests Test 07/01/20 17:05 White Blood Count 4.2 K/UL (4.8-10.8) L Red Blood Count 3.71 M/UL (4.20-5.40) L Hemoglobin 11.0 G/DL (12.0-16.0) L Hematocrit 35.0 % (37.0-47.0) L Mean Corpuscular Volume 94 FL (80-99) Mean Corpuscular Hemoglobin 29.7 PG (27.0-31.0) Mean Corpuscular Hemoglobin Concent 31.4 G/DL (32.0-36.0) L Red Cell Distribution Width 18.0 % (11.6-14.8) H Platelet Count 261 K/UL (150-450) Mean Platelet Volume 6.1 FL (6.5-10.1) L Neutrophils (%) (Auto) 68.7 % (45.0-75.0) Lymphocytes (%) (Auto) 21.1 % (20.0-45.0) Monocytes (%) (Auto) 7.8 % (1.0-10.0) Eosinophils (%) (Auto) 0.9 % (0.0-3.0) Basophils (%) (Auto) 1.5 % (0.0-2.0) Prothrombin Time 10.7 SEC (9.30-11.50) Prothromb Time International Ratio 1.0 (0.9-1.1) Activated Partial Thromboplast Time 25 SEC (23-33) Urine Color Yellow Urine Appearance Slightly cloudy Urine pH 5 (4.5-8.0) Urine Specific [place] 1.010 (1.005-1.035) Urine Protein 1+ (NEGATIVE) H Urine Glucose (UA) Negative (NEGATIVE) Urine Ketones 1+ (NEGATIVE) H Urine Blood Negative (NEGATIVE) Urine Nitrite Negative (NEGATIVE) Urine Bilirubin 1+ (NEGATIVE) H Urine Ictotest Negative (NEGATIVE) Urine Urobilinogen 1 MG/DL (0.0-1.0) H Urine Leukocyte Esterase 1+ (NEGATIVE) H Urine RBC 0 /HPF (0 - 2) Urine WBC 10-15 /HPF (0 - 2) H Urine Squamous Epithelial Cells Many /LPF (NONE/OCC) H Urine Bacteria Moderate /HPF (NONE) H Sodium Level 138 MMOL/L (136-145) Potassium Level 3.7 MMOL/L (3.5-5.1) Chloride Level 101 MMOL/L (98-107) Carbon Dioxide Level 28 MMOL/L (21-32) Anion Gap 9 mmol/L (5-15) Blood Urea Nitrogen 19 mg/dL (7-18) H Creatinine 1.2 MG/DL (0.55-1.30) Estimat Glomerular Filtration Rate 53.2 mL/min (>60) Glucose Level 88 MG/DL (74-106) Calcium Level 9.8 MG/DL (8.5-10.1) Total Bilirubin 0.4 MG/DL (0.2-1.0) Aspartate Amino Transf (AST/SGOT) 17 U/L (15-37) Alanine Aminotransferase (ALT/SGPT) 23 U/L (12-78) Alkaline Phosphatase 115 U/L (46-116) Total Protein 8.5 G/DL (6.4-8.2) H Albumin 3.5 G/DL (3.4-5.0) Globulin 5.0 g/dL Albumin/Globulin Ratio 0.7 (1.0-2.7) L Lipase 149 U/L (73-393) Microbiology Date/Time Source Procedure Growth Status 07/01/20 17:42 Nasopharynx SARS-CoV-2 RdRp Gene Assay - Final Complete 07/01/20 17:05 Urine,Clean Catch Urine Culture - Preliminary NO GROWTH Resulted Height (Feet): 5 Height (Inches): 4.00 Weight (Pounds): 205 Medications Current Medications Medications (Trade) Dose Ordered Sig/Jann Route PRN Reason Start Time Stop Time Status Last Admin Dose Admin Allopurinol (allopurinoL) 300 mg DAILY ORAL 07/02/20 09:00 08/01/20 08:59 07/02/20 09:44 Atorvastatin Calcium (Lipitor) 40 mg BEDTIME ORAL 07/02/20 21:00 09/30/20 20:59 Bupropion HCl (Wellbutrin SR) 150 mg EVERY 12 HOURS ORAL 07/02/20 09:00 08/01/20 08:59 07/02/20 09:44 Heparin Sodium (Porcine) (Heparin 5000 units/ml) 5,000 units EVERY 12 HOURS SUBQ 07/02/20 21:00 08/16/20 20:59 Tramadol HCl (Ultram) 50 mg DAILY PRN ORAL For Pain 07/02/20 04:45 07/09/20 04:44 07/02/20 09:44 Assessment/Plan Problem List: (1) Abdominal wall bulge Assessment & Plan: 74-year-old female with anterior abdominal wall left-sided large hematoma. Tender causing emesis discomfort. Potentially infected unsure. Patient to be admitted for IV antibiotics care management and likely evacuation. Discussed with patient's primary surgeon and we have scheduled her for 07/03/2020 for evacuation and care plan. Okay for diet in the meantime. N.p.o. past midnight. IV fluids consent will follow with recommendations and surgical intervention. Thank you ABDOMEN: Liver: Unremarkable. Gallbladder and bile ducts: Unremarkable. Pancreas: Unremarkable. Spleen: Unremarkable. Adrenals: Unremarkable. Kidneys and ureters: Few cortical cysts within the kidneys bilaterally. No hydronephrosis. No nephrolithiasis. Stomach and bowel: Colonic diverticulosis most pronounced in the sigmoid colon. Mild mucosal thickening within the sigmoid colon in the left lower quadrant could potentially represent very mild diverticulitis or nonspecific colitis. Moderate colonic stool burden. PELVIS: Appendix: Status post appendectomy. Bladder: Unremarkable. No stones. Reproductive: Status post hysterectomy. ABDOMEN and PELVIS: Intraperitoneal space: Unremarkable. No free air. No significant fluid collection. Bones/joints: Status post L4-5 and L5-S1 anterior instrumented fusion. Inflammatory changes within the soft tissues immediately anterior to the spine or favored postsurgical if the surgery was recent. Soft tissues: Large fluid collection within the left lower quadrant subcutaneous fat measuring 10.0 x 10.8 x 13.7 cm. Vasculature: Unremarkable. Lymph nodes: Unremarkable. IMPRESSION: 1. Large fluid collection within the left lower quadrant subcutaneous fat measuring 10.0 x 10.8 x 13.7 cm. Appearance is most suggestive of a resolving hematoma/seroma. Abscess is considered less likely. 2. Colonic diverticulosis most pronounced in the sigmoid colon. Mild mucosal thickening within the sigmoid colon in the left lower quadrant could potentially represent very mild diverticulitis or nonspecific colitis. 3. Moderate colonic stool burden. Correlate for constipation. 4. Small hiatal hernia. 5. Status post hysterectomy. 6. Status post L4-5 and L5-S1 anterior instrumented fusion. Inflammatory changes within the soft tissues immediately anterior to the spine are favored postsurgical if the surgery was recent. No evidence of hardware complication. ICD Codes: R19.00 - Intra-abdominal and pelvic swelling, mass and lump, unspecified site SNOMED: [id number] (2) Abdominal wall fluid collections ICD Codes: R18.8 - Other ascites SNOMED: [id number] Froy Gagnon Jul 02, 2020 14:01
--- NOTE | 2020-07-02 14:39 | NUR ---
NURSE NOTES: Patient signed consent form for Evacuation of abdominal hematoma versus fluid collection, incision and drainage, possible debridement. Consent in chart.
--- NOTE | 2020-07-02 18:46 | History and Physical ---
History of Present Illness General Reason for Hospitalization: Abdominal Pain Present Illness HPI 74F with PMhx of HTN, HLD, Depression and Tobacco with recent lumbar spine surge ry presented with lower abdominal pain. Patient was seen block captain by surgeon and found to have large abdominal protrusion concerning for possible hernia. She says she has been having increased pain over the past month and the size of the abdominal abnormality began to grow in size. She has been having some nausea and vomiting over the past few days. She has not had a BM in the last two days. She was noted on imaging to have a very large hematoma/seroma. Currently she is in a moderate amount of pain. She is asking for food. She is unable to recall all of her home medications and will get the list from her family. Allergies: Coded Allergies: ASPIRIN (Verified Allergy, Intermediate, vomiting, 05/04/20) CODEINE (Verified Allergy, Intermediate, vomiting, 05/04/20) COVID-19 Screening Contact w/high risk pt: No Experienced COVID-19 symptoms?: No Medication History Scheduled Allopurinol* (Zyloprim*), 300 MG ORAL DAILY, (Reported) Atorvastatin Calcium* (Lipitor*), 40 MG ORAL BEDTIME, (Reported) Bupropion Hcl* (Bupropion Hcl Sr*), 150 MG ORAL EVERY 12 HOURS, (Reported) Omeprazole (Omeprazole), 20 MG ORAL DAILY, (Reported) Scheduled PRN Tramadol Hcl* (Ultram*), 50 MG ORAL DAILY PRN for For Pain, (Reported) Miscellaneous Medications Nicotine Polacrilex (Nicotine Gum), 4 MG BC, (Reported) Patient History History Provided By: Patient, Medical Record Healthcare decision maker Resuscitation status Advanced Directive on File Yes Review of Systems Constitutional: Denies: no symptoms, see HPI, chills, sweats, fever, malaise, weakness, other Eye: Denies: no symptoms, see HPI, eye pain, blurred vision, tearing, double vision, nose pain, nose congestion, acuity changes, discharge, other ENT: Denies: no symptoms, see HPI, ear pain, ear discharge, nose pain, nose congestion, throat pain, throat swelling, mouth pain, hearing loss, nasal discharge, other Respiratory: Denies: no symptoms, see HPI, cough, orthopnea, shortness of breath, stridor, wheezing, KURTZ, sputum, other Cardiovascular: Denies: no symptoms, see HPI, chest pain, edema, palpitations, syncope, PND, other Gastrointestinal: Reports: nausea, vomiting Genitourinary: Denies: no symptoms, see HPI, discharge, dysuria, frequency, hematuria, pain, retention, incontinence, urgency, vag bleed/dc, other Musculoskeletal: Denies: no symptoms, see HPI, back pain, gout, joint pain, joint swelling, muscle pain, muscle stiffness, other Skin: Denies: no symptoms, see HPI, rash, change in color, change in hair/nails, dryness, lesions, other Psychiatric: Denies: no symptoms, see HPI, prior hx, anxiety, depressed feelings, emotional problems, SI, HI, hallucinations, other Neurological: Denies: no symptoms, see HPI, headache, numbness, paresthesia, seizure, tingling, tremors, focal weakness, syncope, dizziness, other Endocrine: Denies: no symptoms, see HPI, excessive sweating, flushing, i ntolerance to temperature, increased thirst, increased urine, unexplained weight loss, other Hematologic/Lymphatic: Denies: no symptoms, see HPI, anemia, blood clots, easy bleeding, easy bruising, swollen glands, diathesis, other Physical Exam General Appearance: no apparent distress, alert HEENT: normocephalic, atraumatic Neck: supple Respiratory/Chest: normal breath sounds Cardiovascular/Chest: normal rate, regular rhythm Abdomen: other - Large llq palpable hematoma Extremities: normal range of motion Skin Exam: warm/dry 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, oriented x 3 Last 24 Hour Vital Signs Date Time Temp Pulse Resp B/P (MAP) Pulse Ox O2 Delivery O2 Flow Rate FiO2 07/02/20 16:00 98.1 106 20 111/55 (73) 97 07/02/20 12:00 98.1 88 20 130/63 (85) 95 07/02/20 12:00 88 07/02/20 10:14 97.8 07/02/20 09:00 Room Air 07/02/20 08:00 98.1 89 20 131/72 (91) 93 07/02/20 08:00 92 07/02/20 04:00 97.8 95 18 110/72 (85) 94 07/02/20 04:00 95 07/02/20 02:19 Room Air 07/02/20 01:50 89 07/02/20 01:50 97.9 93 22 97/52 (67) 94 07/02/20 01:24 98.0 68 18 132/70 100 Room Air 07/02/20 00:15 98.0 70 18 132/70 100 Room Air 07/01/20 21:30 98.4 72 18 140/62 98 Room Air Intake and Output 07/01/20 07/02/20 19:00 07:00 Intake Total 0 ml Balance 0 ml Intake Oral 0 ml # Voids 1 Height (Feet): 5 Height (Inches): 4.00 Weight (Pounds): 205 Medications Current Medications Medications (Trade) Dose Ordered Sig/Jann Route PRN Reason Start Time Stop Time Status Last Admin Dose Admin Allopurinol (allopurinoL) 300 mg DAILY ORAL 07/02/20 09:00 08/01/20 08:59 07/02/20 09:44 Atorvastatin Calcium (Lipitor) 40 mg BEDTIME ORAL 07/02/20 21:00 09/30/20 20:59 Bupropion HCl (Wellbutrin SR) 150 mg EVERY 12 HOURS ORAL 07/02/20 09:00 08/01/20 08:59 07/02/20 09:44 Heparin Sodium (Porcine) (Heparin 5000 units/ml) 5,000 units EVERY 12 HOURS SUBQ 07/02/20 21:00 08/16/20 20:59 Tramadol HCl (Ultram) 50 mg DAILY PRN ORAL For Pain 07/02/20 04:45 07/09/20 04:44 07/02/20 09:44 Assessment/Plan Status: stable Diagnosis [place] I: #Abdominal Pain #Large Hematoma/Seroma Patient presents following recent surgery with large left sided hematoma. - CT Abd - Large fluid collection [id number] - Evacuation planned with surgery 07/03/20 - S/p Rocephen x1 - NPO midnight - Pre-op surgical prophylaxis with ancef per surgery if needed - Surgery following, appreciate recs - Zofran prn for n/v - Tramadol for pain #Colonoic Diverticulosis #Constipation - Bowel Regimen #S/p Lumbar Surgery #HLD - Continue statin #Tobacco Use - Discuss cessation NPO Midnight Full Code SCDs Time spent is approximately 75 minutes with 16 minutes spent with counseling and care coordination. D/w Consultants and nurse Time of note does not reflect time of encounter. Alisha Dumont M.D. Jul 02, 2020 18:46
--- NOTE | 2020-07-02 19:11 | NUR ---
NURSE HAND-OFF REPORT: Important Events on Shift:[Patient signed consent for surgery tomorrow. ] Patient Status: [full code] Diet: [Regular, NPO at midnight] Pending Orders: [] Pending Results/Labs:[] Pending MD notification:[] Latest Vital Signs: Temperature 98.1 , Pulse 104 , B/P 111 /55 , Respiratory Rate 20 , O2 SAT 97 , Room Air, O2 Flow Rate . Vital Sign Comment: [] EKG Rhythm: Sinus Tachycardia Rhythm change?: N MD Notified?: - MD Response: Latest [place] Fall Score: 45 Fall Risk: High Risk Safety Measures: Call light Within Reach, Bed Alarm Zone 2, Side Rails Side Rails x3, Bed position Low and Locked. Fall Precautions: Yellow Socks Yellow Gown Patient Fall Education Report given to [LATRICIA Sinclair].
--- NOTE | 2020-07-02 19:12 | NUR ---
NURSE NOTES: Received report from LATRICIA Banda; noted laying in bed comfortable; AOX4; in no acute distress; for scheduled abdominal sx tomorrow for hematoma evacuation; NPO @ midnight; pt aware; already with signed consent in pt chart. With bedside commode ready to use; Will f/u GI procedure checklist/EKG; call light within reach; bed locked and low position; side rails x 2; will continue to monitor.
[2020-07-02] MEDS: Heparin 5000 units/ml inj SUBQ SCH (21:00)
[2020-07-02] MEDS: Atorvastatin 80mg tab ORAL SCH (21:15)
[2020-07-03] VITALS (15 sets, daily range): BP systolic 132–177; BP diastolic 63–92
--- NOTE | 2020-07-03 03:16 | NUR ---
NURSE NOTES: EKG performed at bedside for scheduled GI procedure today 07/03/20; EKG results sinus tachycardia; pt with episodes of rhythm; asymptomatic. Will endorse to AM RN. Pt back to sleep.
--- NOTE | 2020-07-03 07:30 | NUR ---
NURSE HAND-OFF REPORT: Important Events on Shift: NPO @ midnight; for GI procedure evacuation of abdominal hematoma vs. fluid evacuation I & D, possible debridement, EKG and GI procedure checklist done; consent signed Patient Status: AOX4, stable, asleep most of the night Diet: NPO Pending Orders: N Pending Results/Labs: morning labs Pending MD notification: N Latest Vital Signs: Temperature 97.5 , Pulse 80 , B/P 140 /71 , Respiratory Rate 20 , O2 SAT 97 , Room Air, O2 Flow Rate . Vital Sign Comment: stable EKG Rhythm: Sinus Tachycardia Rhythm change?: N MD Notified?: - MD Response: Latest [place] Fall Score: 30 Fall Risk: Medium Risk Safety Measures: Call light Within Reach, Bed Alarm Zone 2, Side Rails Side Rails x2, Bed position Low and Locked. Fall Precautions: Yellow Socks Yellow Gown Patient Fall Education Report given to LATRICIA Banda.
[2020-07-03 07:58] LABS: BASOPHILS % (AUTO) 2.5 % (0.0-2.0); EOSINOPHILS % (AUTO) 3.2 % (0.0-3.0); HEMATOCRIT 29.4 % (37.0-47.0); HEMOGLOBIN 9.7 G/DL (12.0-16.0); MEAN CORPUSCULAR VOLUME 90 FL (80-99); MONOCYTES % (AUTO) 15.6 % (1.0-10.0); NEUTROPHILS % (AUTO) 61.8 % (45.0-75.0); PLATELET COUNT 215 K/UL (150-450); RED BLOOD COUNT 3.25 M/UL (4.20-5.40); RED CELL DISTRIBUTION WIDTH 17.9 % (11.6-14.8); WHITE BLOOD COUNT 3.5 K/UL (4.8-10.8)
[2020-07-03 08:05] LABS: INR 0.9 (0.9-1.1)
[2020-07-03 08:09] LABS: ALANINE AMINOTRANSFERASE 21 U/L (12-78); ALBUMIN 2.9 G/DL (3.4-5.0); ALBUMIN/GLOBULIN RATIO 0.7 (1.0-2.7); ALKALINE PHOSPHATASE 98 U/L (46-116); ANION GAP 6 mmol/L (5-15); ASPARTATE AMINO TRANSFERASE 19 U/L (15-37); BILIRUBIN,TOTAL 0.4 MG/DL (0.2-1.0); BLOOD UREA NITROGEN 20 mg/dL (7-18); CALCIUM 9.2 MG/DL (8.5-10.1); CARBON DIOXIDE 29 MMOL/L (21-32); CHLORIDE 103 MMOL/L (98-107); CREATININE 0.9 MG/DL (0.55-1.30); SODIUM 138 MMOL/L (136-145)
--- NOTE | 2020-07-03 08:33 | NUR ---
NURSE NOTES: Received patient report from LATRICIA Sinclair. Patient shows no signs of distress or pain at the time. Patient is awake and able to make needs known. She is on room air and shows no signs of respiratory distress. She is NPO prior to procedure. IV is intact and patent. There are no signs of erythema, infiltration, or bleeding. Bed is in the lowest position, call light is within reach, side rails up x3. Will continue to monitor.
--- NOTE | 2020-07-03 08:53 | NUR ---
CASE MANAGEMENT:REVIEW 07/03/20 SI: ABDOMINAL WALL HEMATOMA/SEROMA 97.5 103 80 20 140/71 97% ON RA WBC-3.5 H/H-9.7/29.4 BUN+20 IS: NPO : TELEMETRY STATUS DCP; FROM HOME PLAN: SCHEDULED FOR SURGERY ~EVACUATION OF ABDOMINAL HEMATOMA vs FLUID COLLECTION, INCISION AND DRAINAGE , POSSIBLE DEBRIDEMENT
[2020-07-03] MEDS: Heparin 5000 units/ml inj SUBQ SCH ×2 (09:00→20:56)
[2020-07-03] MEDS: BuPROPion SR 150mg tab ORAL SCH ×2 (09:17→20:55)
[2020-07-03] MEDS ORDERED: NS 275ml ONE (10:05)
--- NOTE | 2020-07-03 13:05 | General Progress Note ---
Subjective Date patient seen: Jul 03, 2020 Time patient seen: 09:11 Constitutional: Denies: no symptoms, chills, diaphoresis, fever, malaise, weakness, other HEENT: Denies: no symptoms, eye pain, blurred vision, tearing, double vision, ear pain, ear discharge, nose pain, nose congestion, throat pain, throat swelling, mouth pain, mouth swelling, other Cardiovascular: Denies: no symptoms, chest pain, edema, irregular heart rate, lightheadedness, palpitations, syncope, other Respiratory: Denies: no symptoms, cough, orthopnea, shortness of breath, SOB with excertion, SOB at rest, sputum, stridor, wheezing, other Gastrointestinal/Abdominal: Reports: abdominal pain Genitourinary: Denies: no symptoms, burning, discharge, frequency, flank pain, hematuria, incontinence, pain, urgency, other Neurologic/Psychiatric: Denies: no symptoms, anxiety, depressed, emotional problems, headache, numbness, paresthesia, pre-existing deficit, seizure, tingling, tremors, weakness, other Endocrine: Denies: no symptoms, excessive sweating, flushing, intolerance to cold, intolerance to heat, increased hunger, increased thirst, increased urine, unexplained weight gain, unexplained weight loss, other Hematologic/Lymphatic: Denies: no symptoms, anemia, easy bleeding, easy bruising, other Allergies: Coded Allergies: ASPIRIN (Verified Allergy, Intermediate, vomiting, 05/04/20) CODEINE (Verified Allergy, Intermediate, vomiting, 05/04/20) Subjective NAEO , VSS Abdominal pain this morning I&D planned for 4pm today Patient is NPO Aware of plan Objective Last 24 Hour Vital Signs Date Time Temp Pulse Resp B/P (MAP) Pulse Ox O2 Delivery O2 Flow Rate FiO2 07/03/20 12:00 98.1 90 20 135/76 (95) 96 07/03/20 09:47 97.5 07/03/20 09:00 Room Air 07/03/20 08:00 97.6 97 20 144/80 (101) 96 07/03/20 08:00 90 07/03/20 04:00 103 07/03/20 04:00 97.5 80 20 140/71 (94) 97 07/03/20 00:00 96 07/03/20 00:00 97.4 91 20 134/73 (93) 94 07/02/20 21:00 Room Air 07/02/20 20:00 97.1 85 18 114/74 (87) 95 07/02/20 20:00 102 07/02/20 16:00 98.1 106 20 111/55 (73) 97 07/02/20 16:00 104 Intake and Output 07/02/20 07/03/20 19:00 07:00 Intake Total 200 ml 0 ml Balance 200 ml 0 ml Intake Oral 200 ml 0 ml Laboratory Tests 07/03/20 05:59: White Blood Count 3.5L, Red Blood Count 3.25L, Hemoglobin 9.7L, Hematocrit 29.4L , Mean Corpuscular Volume 90, Mean Corpuscular Hemoglobin 30.0, Mean Corpuscular Hemoglobin Concent 33.2, Red Cell Distribution Width 17.9H, Platelet Count 215, Mean Platelet Volume 6.3L, Neutrophils (%) (Auto) 61.8, Lymphocytes (%) (Auto) 17.0L, Monocytes (%) (Auto) 15.6H, Eosinophils (%) (Auto) 3.2H, Basophils (%) (Auto) 2.5H, Prothrombin Time 10.3, Prothromb Time International Ratio 0.9, Activated Partial Thromboplast Time 26, Sodium Level 138, Potassium Level 4.0, Chloride Level 103, Carbon Dioxide Level 29, Anion Gap 6, Blood Urea Nitrogen 20H, Creatinine 0.9, Estimat Glomerular Filtration Rate > 60, Glucose Level 89, Calcium Level 9.2, Total Bilirubin 0.4, Aspartate Amino Transf (AST/SGOT) 19, Alanine Aminotransferase (ALT/SGPT) 21, Alkaline Phosphatase 98, Total Protein 7.3, Albumin 2.9L, Globulin 4.4, Albumin/Globulin Ratio 0.7L Height (Feet): 5 Height (Inches): 4.00 Weight (Pounds): 200 General Appearance: no apparent distress, alert Neck: supple Cardiovascular: normal rate, regular rhythm Respiratory/Chest: lungs clear, normal breath sounds Abdomen: soft, other - LLQ with large palpable hematoma Extremities: normal range of motion 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 - CT Abd - Large fluid collection [id number] - Evacuation planned with surgery 07/03/20 - S/p Rocephen x1 - NPO midnight for planned I&D today - Pre-op surgical prophylaxis with ancef per surgery - Surgery following, appreciate recs - Zofran prn for n/v - Tramadol for pain #Colonic Diverticulosis #Constipation - Bowel Regimen #S/p Lumbar Surgery #HLD - Continue statin #Tobacco Use - Discuss cessation NPO, resume diet following Full Code SCDs Time spent is approximately 33 minutes with 16 minutes spent with counseling and care coordination. D/w Consultants and nurse Time of note does not reflect time of encounter. Alisha Dumont M.D. Jul 03, 2020 13:05
[2020-07-03] MEDS ORDERED: Docusate Sod/Senna tab ORAL PRN (13:15)
--- NOTE | 2020-07-03 15:56 | Pre-Procedure Note/Attestation ---
Pre-Procedure Note/Attestation Complete Prior to Procedure Planned Procedure: not applicable Indications for Procedure Pre-Operative Diagnosis: Abd wall fluid collection Attestation I attest that I discussed the nature of the procedure; its benefits; risks and complications; and alternatives (and the risks and benefits of such alternatives), prior to the procedure, with the patient (or the patient's legal canvas products sales representative). I attest that, if there was a reasonable possibility of needing a blood transfusion, the patient (or the patient's legal canvas products sales representative) was given the [facility] standardized written summary, pursuant to the Steven Tab Blood Safety Act ([place] Health and Safety Code # 1645, as amended). I attest that I re-evaluated the patient just prior to the surgery and that there has been no change in the patient's H&P, except as documented below: Jason Yen MD Jul 03, 2020 15:56
--- NOTE | 2020-07-03 16:09 | Surgery Progress Note ---
Surgery Progress Note Subjective Additional Comments covid negative discussed care plan with patient, primary care nurse, primary surgeon or today for evacuation / exploration Objective Last 24 Hour Vital Signs Date Time Temp Pulse Resp B/P (MAP) Pulse Ox O2 Delivery O2 Flow Rate FiO2 07/03/20 12:00 98.1 90 20 135/76 (95) 96 07/03/20 12:00 98 07/03/20 09:47 97.5 07/03/20 09:00 Room Air 07/03/20 08:00 97.6 97 20 144/80 (101) 96 07/03/20 08:00 90 07/03/20 04:00 103 07/03/20 04:00 97.5 80 20 140/71 (94) 97 07/03/20 00:00 96 07/03/20 00:00 97.4 91 20 134/73 (93) 94 07/02/20 21:00 Room Air 07/02/20 20:00 97.1 85 18 114/74 (87) 95 07/02/20 20:00 102 I&O Intake and Output 07/02/20 07/03/20 19:00 07:00 Intake Total 200 ml 0 ml Balance 200 ml 0 ml Intake Oral 200 ml 0 ml Cardiovascular: RSR Respiratory: clear Abdomen: soft, non-tender, other Extremities: no edema, no tenderness, no cyanosis Laboratory Tests Test 07/03/20 05:59 White Blood Count 3.5 K/UL (4.8-10.8) L Red Blood Count 3.25 M/UL (4.20-5.40) L Hemoglobin 9.7 G/DL (12.0-16.0) L Hematocrit 29.4 % (37.0-47.0) L Mean Corpuscular Volume 90 FL (80-99) Mean Corpuscular Hemoglobin 30.0 PG (27.0-31.0) Mean Corpuscular Hemoglobin Concent 33.2 G/DL (32.0-36.0) Red Cell Distribution Width 17.9 % (11.6-14.8) H Platelet Count 215 K/UL (150-450) Mean Platelet Volume 6.3 FL (6.5-10.1) L Neutrophils (%) (Auto) 61.8 % (45.0-75.0) Lymphocytes (%) (Auto) 17.0 % (20.0-45.0) L Monocytes (%) (Auto) 15.6 % (1.0-10.0) H Eosinophils (%) (Auto) 3.2 % (0.0-3.0) H Basophils (%) (Auto) 2.5 % (0.0-2.0) H Prothrombin Time 10.3 SEC (9.30-11.50) Prothromb Time International Ratio 0.9 (0.9-1.1) Activated Partial Thromboplast Time 26 SEC (23-33) Sodium Level 138 MMOL/L (136-145) Potassium Level 4.0 MMOL/L (3.5-5.1) Chloride Level 103 MMOL/L (98-107) Carbon Dioxide Level 29 MMOL/L (21-32) Anion Gap 6 mmol/L (5-15) Blood Urea Nitrogen 20 mg/dL (7-18) H Creatinine 0.9 MG/DL (0.55-1.30) Estimat Glomerular Filtration Rate > 60 mL/min (>60) Glucose Level 89 MG/DL (74-106) Calcium Level 9.2 MG/DL (8.5-10.1) Total Bilirubin 0.4 MG/DL (0.2-1.0) Aspartate Amino Transf (AST/SGOT) 19 U/L (15-37) Alanine Aminotransferase (ALT/SGPT) 21 U/L (12-78) Alkaline Phosphatase 98 U/L (46-116) Total Protein 7.3 G/DL (6.4-8.2) Albumin 2.9 G/DL (3.4-5.0) L Globulin 4.4 g/dL Albumin/Globulin Ratio 0.7 (1.0-2.7) L Plan Problems: (1) Abdominal wall bulge Assessment & Plan: 74-year-old female with anterior abdominal wall left-sided large hematoma. Tender causing emesis discomfort. Potentially infected unsure. Patient to be admitted for IV antibiotics care management and likely evacuation. Discussed with patient's primary surgeon and we have scheduled her for 07/03/2020 for evacuation and care plan. Okay for diet in the meantime. N.p.o. past midnight. IV fluids consent will follow with recommendations and surgical intervention. Thank you ABDOMEN: Liver: Unremarkable. Gallbladder and bile ducts: Unremarkable. Pancreas: Unremarkable. Spleen: Unremarkable. Adrenals: Unremarkable. Kidneys and ureters: Few cortical cysts within the kidneys bilaterally. No hydronephrosis. No nephrolithiasis. Stomach and bowel: Colonic diverticulosis most pronounced in the sigmoid colon. Mild mucosal thickening within the sigmoid colon in the left lower quadrant could potentially represent very mild diverticulitis or nonspecific colitis. Moderate colonic stool burden. PELVIS: Appendix: Status post appendectomy. Bladder: Unremarkable. No stones. Reproductive: Status post hysterectomy. ABDOMEN and PELVIS: Intraperitoneal space: Unremarkable. No free air. No significant fluid collection. Bones/joints: Status post L4-5 and L5-S1 anterior instrumented fusion. Inflammatory changes within the soft tissues immediately anterior to the spine or favored postsurgical if the surgery was recent. Soft tissues: Large fluid collection within the left lower quadrant subcutaneous fat measuring 10.0 x 10.8 x 13.7 cm. Vasculature: Unremarkable. Lymph nodes: Unremarkable. IMPRESSION: 1. Large fluid collection within the left lower quadrant subcutaneous fat measuring 10.0 x 10.8 x 13.7 cm. Appearance is most suggestive of a resolving hematoma/seroma. Abscess is considered less likely. 2. Colonic diverticulosis most pronounced in the sigmoid colon. Mild mucosal thickening within the sigmoid colon in the left lower quadrant could potentially represent very mild diverticulitis or nonspecific colitis. 3. Moderate colonic stool burden. Correlate for constipation. 4. Small hiatal hernia. 5. Status post hysterectomy. 6. Status post L4-5 and L5-S1 anterior instrumented fusion. Inflammatory changes within the soft tissues immediately anterior to the spine are favored postsurgical if the surgery was recent. No evidence of hardware complication. (2) Abdominal wall fluid collections Froy Gagnon Jul 03, 2020 16:09
--- NOTE | 2020-07-03 16:25 | Anethesia Preoperative Eval ---
Anesthesia Pre-op PMH/ROS General Date of Evaluation: Jul 03, 2020 Time of Evaluation: 17:51 Anesthesiologist: Td ASA Score: ASA 3 Mallampati Score Class I : Soft palate, uvula, fauces, pillars visible Class II: Soft palate, uvula, fauces visible Class III: Soft palate, base of uvula visible Class IV: Only hard plate visible Mallampati Classification: Class II Surgeon: Farshad Diagnosis: Abd Pain Surgical Procedure: Evacuation of Abdominal Hematoma Anesthesia History: none Family History: no anesthesia problems Allergies: Coded Allergies: ASPIRIN (Verified Allergy, Intermediate, vomiting, 05/04/20) CODEINE (Verified Allergy, Intermediate, vomiting, 05/04/20) Medications: see eMAR Patient NPO?: Yes Past Medical History Cardiovascular: Reports: HTN, arrhythmia, other - HL Pulmonary: Reports: COPD, ESSIE Gastrointestinal/Genitourinary: Reports: GERD Neurologic/Psychiatric: Reports: CVA - Has Stents Musculoskeletal/Integumentary: Reports: OA, other - Gout Other: obesity - BMI 37 PSxH Narrative: Back Sx, Abd Sx, Brain Stents, L Knee Sx, L Hallux Valgus Sx, R Arm ORIF, Umbilical Hernia SX Anesthesia Pre-op Phys. Exam Physician Exam Last Vital Signs Date Time Temp Pulse Resp B/P (MAP) Pulse Ox O2 Delivery O2 Flow Rate FiO2 07/03/20 12:00 98.1 90 20 135/76 (95) 96 07/03/20 09:00 Room Air Constitutional: NAD Neurologic: CN 2-12 intact Cardiovascular: RRR Respiratory: CTA Gastrointestinal: S/NT/ND Airway Exam Mallampati Score: Class II MO: limited ROM: limited Teeth: missing, intact Anesthesia Pre-op A/P Labs Hematology Test 07/03/20 05:59 White Blood Count 3.5 K/UL (4.8-10.8) L Red Blood Count 3.25 M/UL (4.20-5.40) L Hemoglobin 9.7 G/DL (12.0-16.0) L Hematocrit 29.4 % (37.0-47.0) L Mean Corpuscular Volume 90 FL (80-99) Mean Corpuscular Hemoglobin 30.0 PG (27.0-31.0) Mean Corpuscular Hemoglobin Concent 33.2 G/DL (32.0-36.0) Red Cell Distribution Width 17.9 % (11.6-14.8) H Platelet Count 215 K/UL (150-450) Mean Platelet Volume 6.3 FL (6.5-10.1) L Neutrophils (%) (Auto) 61.8 % (45.0-75.0) Lymphocytes (%) (Auto) 17.0 % (20.0-45.0) L Monocytes (%) (Auto) 15.6 % (1.0-10.0) H Eosinophils (%) (Auto) 3.2 % (0.0-3.0) H Basophils (%) (Auto) 2.5 % (0.0-2.0) H Coagulation Test 07/03/20 05:59 Prothrombin Time 10.3 SEC (9.30-11.50) Prothromb Time International Ratio 0.9 (0.9-1.1) Activated Partial Thromboplast Time 26 SEC (23-33) Chemistry Test 07/03/20 05:59 Sodium Level 138 MMOL/L (136-145) Potassium Level 4.0 MMOL/L (3.5-5.1) Chloride Level 103 MMOL/L (98-107) Carbon Dioxide Level 29 MMOL/L (21-32) Anion Gap 6 mmol/L (5-15) Blood Urea Nitrogen 20 mg/dL (7-18) H Creatinine 0.9 MG/DL (0.55-1.30) Estimat Glomerular Filtration Rate > 60 mL/min (>60) Glucose Level 89 MG/DL (74-106) Calcium Level 9.2 MG/DL (8.5-10.1) Total Bilirubin 0.4 MG/DL (0.2-1.0) Aspartate Amino Transf (AST/SGOT) 19 U/L (15-37) Alanine Aminotransferase (ALT/SGPT) 21 U/L (12-78) Alkaline Phosphatase 98 U/L (46-116) Total Protein 7.3 G/DL (6.4-8.2) Albumin 2.9 G/DL (3.4-5.0) L Globulin 4.4 g/dL Albumin/Globulin Ratio 0.7 (1.0-2.7) L Risk Assessment & Plan Assessment: ASA 3 Plan: GA, SED, GlideScope Status Change Before Surgery: No Pre-Antibiotics Dru Grams Ancef IV Given Within 1 Hr of Incision: Yes Time Given: 18:26 Negrito Appiah MD Jul 03, 2020 16:25
--- NOTE | 2020-07-03 16:26 | Immediate Post-Op Evaluation ---
Immediate Post-Op Evalulation Immediate Post-Op Evalulation Procedure: Evacuation of Abdominal Hematoma Date of Evaluation: Jul 03, 2020 Time of Evaluation: 19:20 IV Fluids: 100 LR Blood Products: 0 Estimated Blood Loss: 10 Urinary Output: 0 Blood Pressure Systolic: 177 Blood Pressure Diastolic: 92 Pulse Rate: 104 Respiratory Rate: 16 O2 Sat by Pulse Oximetry: 100 Temperature (Fahrenheit): 98.7 Pain Score (1-10): 2 Nausea: No Vomiting: No Complications 0 Patient Status: awake, reacts, patent, extubated, none Hydration Status: adequate Dru Grams Ancef IV Given Within 1 Hr of Incision: Yes Time Given: 18:26 Negrito Appiah MD Jul 03, 2020 16:26
--- NOTE | 2020-07-03 16:27 | 48 Hour Post Anesthesia Eval ---
Post Anesthesia Evaluation Procedure: Evacuation of Abdominal Hematoma Date of Evaluation: Jul 03, 2020 Time of Evaluation: 21:34 Blood Pressure Systolic: 164 0: 93 Pulse Rate: 101 Respiratory Rate: 18 Temperature (Fahrenheit): 98.7 O2 Sat by Pulse Oximetry: 100 Airway: patent Nausea: No Vomiting: No Pain Intensity: 2 Hydration Status: adequate Cardiopulmonary Status: Stable Mental Status/LOC: patient returned to baseline Follow-up Care/Observations: 0 Post-Anesthesia Complications: 0 Follow-up care needed: N/A Negrito Appiah MD Jul 03, 2020 16:27
[2020-07-03] MEDS ORDERED: Atropine Sulfate 0.4mg/ml inj IVP PRN (16:30)
[2020-07-03] MEDS ORDERED: LR 1000ml 1,000 ML IVLG SCH (16:30)
[2020-07-03] MEDS ORDERED: DiphenhydrAMINE 50mg/ml Inj IVP PRN (16:30)
[2020-07-03] MEDS ORDERED: fentaNYL 100 mcg/2 mL IV PRN (16:30)
[2020-07-03] MEDS ORDERED: Acetaminophen (Non formulary) 100 ML IV ONE (16:30)
[2020-07-03] MEDS ORDERED: Midazolam 2mg/2ml Inj IVP PRN (16:30)
[2020-07-03] MEDS ORDERED: LORazepam Inj 2mg/ml 1ml IV PRN (16:30)
[2020-07-03] MEDS ORDERED: Labetalol 5mg/ml 20ml vial IV PRN (16:30)
[2020-07-03] MEDS ORDERED: Sodium Chloride 10ml vial INJ ONE (16:41)
[2020-07-03] MEDS ORDERED: Lidocaine 1% MPF 10mg/ml 5ml ONE (16:41)
[2020-07-03] MEDS ORDERED: Midazolam 2mg/2ml Inj ONE (16:43)
[2020-07-03] MEDS ORDERED: fentaNYL 100 mcg/2 mL IV ONE (16:43)
[2020-07-03] MEDS ORDERED: Lidocaine 1% Plain 30 ml INJ ONE (16:46)
[2020-07-03] MEDS ORDERED: Sterile Water Irrig 1000ml IRRIG ONE (18:00)
[2020-07-03] MEDS ORDERED: LR 1000ml ONE (18:00)
[2020-07-03] MEDS ORDERED: NS Irrig 1000ml IRRIG ONE (18:39)
[2020-07-03] MEDS ORDERED: Glycopyrrolate 0.2mg/ml 1ml Vial ONE (18:50)
--- NOTE | 2020-07-03 19:20 | NUR ---
NURSE HAND-OFF REPORT: Important Events on Shift:[Off to surgery] Patient Status: [Full code] Diet: [NPO/ Regular] Pending Orders: [] Pending Results/Labs:[] Pending MD notification:[] Latest Vital Signs: Temperature 98.7 , Pulse 101 , B/P 164 /93 , Respiratory Rate 18 , O2 SAT 100 , Room Air, O2 Flow Rate . Vital Sign Comment: [] EKG Rhythm: Sinus Rhythm Rhythm change?: N MD Notified?: - MD Response: Latest Hargrove Fall Score: 45 Fall Risk: High Risk Safety Measures: Call light Within Reach, Bed Alarm Zone 2, Side Rails Side Rails x3, Bed position Low and Locked. Fall Precautions: Yellow Socks Yellow Gown Patient Fall Education Report given to [LATRICIA De Paz].
--- NOTE | 2020-07-03 20:37 | NUR ---
NURSE NOTES: Just received report from LATRICIA Loomis. Pt just received from surgery with pain of 8/10. Pain medication given prior coming to the unit. Pt is A/O x4 and verbally responsive. No SOB or acute distress noted. Pt has O2 via NC with saturation @ 99%. Bed in lowest position with siderails x 3 and locked. Will continue plan of care.
[2020-07-03] MEDS: Atorvastatin 80mg tab ORAL SCH (20:55)
[2020-07-03] MEDS: Tylenol #3 tab (300mg/30mg) ORAL PRN (22:30)
[2020-07-04] VITALS: BP 111/57
[2020-07-04] MEDS: ceFAZolin sod 1 GM in D5W 55 ML IVPB SCH ×3 (02:26→18:00)
[2020-07-04] MEDS: Tylenol #3 tab (300mg/30mg) ORAL PRN ×3 (02:31→14:26)
[2020-07-04 04:00] VITALS: BP 149/88
--- NOTE | 2020-07-04 06:34 | NUR ---
NURSE NOTES: Drained Jose Alberto drain with 12cc of blood tinged serous fluid.
--- NOTE | 2020-07-04 07:23 | NUR ---
NURSE NOTES: NURSE HAND-OFF REPORT: Important Events on Shift: S/P Surgery with Jose Alberto drain. Tylenol #3 given 2 times for pain. Patient Status: Stable Diet: Regular Pending Orders: Pending Results/Labs: Pending MD notification: Latest Vital Signs: Temperature 97.5 , Pulse 91 , B/P 149 /88 , Respiratory Rate 16 , O2 SAT 100 , Room Air, O2 Flow Rate 3 . Vital Sign Comment: EKG Rhythm: Sinus Rhythm Rhythm change?: N MD Notified?: - MD Response: Latest Hargrove Fall Score: 45 Fall Risk: High Risk Safety Measures: Call light Within Reach, Bed Alarm Zone 2, Side Rails Side Rails x3, Bed position Low and Locked. Fall Precautions: Yellow Socks Yellow Gown Patient Fall Education Report given to
--- NOTE | 2020-07-04 07:44 | NUR ---
NURSE NOTES: Report received from Zandra ROME. Patient seen on rounds, awake in bed lying on side. On room air with no signs of acute distress. Abdomen noted with surgical dressing and steve drain with negative pressure. Nurse reports serosanguinous drain of 12cc. PIV on left hand patent and intact. Pt able to ambulate and use bedside commode. Bed low and locked, siderails up x2, call light placed within reach. Will continue to monitor.
[2020-07-04 08:00] VITALS: BP 137/71
[2020-07-04] MEDS: BuPROPion SR 150mg tab ORAL SCH (08:49)
[2020-07-04] MEDS: Heparin 5000 units/ml inj SUBQ SCH (08:50)
[2020-07-04 12:00] VITALS: BP 130/62
--- NOTE | 2020-07-04 13:18 | General Progress Note ---
Subjective Date patient seen: Jul 04, 2020 Time patient seen: 09:56 Constitutional: Denies: no symptoms, chills, diaphoresis, fever, malaise, weakness, other HEENT: Denies: no symptoms, eye pain, blurred vision, tearing, double vision, ear pain, ear discharge, nose pain, nose congestion, throat pain, throat swelling, mouth pain, mouth swelling, other Cardiovascular: Denies: no symptoms, chest pain, edema, irregular heart rate, lightheadedness, palpitations, syncope, other Respiratory: Denies: no symptoms, cough, orthopnea, shortness of breath, SOB with excertion, SOB at rest, sputum, stridor, wheezing, other Gastrointestinal/Abdominal: Reports: abdominal pain Genitourinary: Denies: no symptoms, burning, discharge, frequency, flank pain, hematuria, incontinence, pain, urgency, other Neurologic/Psychiatric: Denies: no symptoms, anxiety, depressed, emotional problems, headache, numbness, paresthesia, pre-existing deficit, seizure, tingling, tremors, weakness, other Endocrine: Denies: no symptoms, excessive sweating, flushing, intolerance to cold, intolerance to heat, increased hunger, increased thirst, increased urine, unexplained weight gain, unexplained weight loss, other Hematologic/Lymphatic: Denies: no symptoms, anemia, easy bleeding, easy bruising, other Allergies: Coded Allergies: ASPIRIN (Verified Allergy, Intermediate, vomiting, 05/04/20) CODEINE (Verified Allergy, Intermediate, vomiting, 05/04/20) Subjective NAEO , VSS Abdominal pain this morning POD #1 I&D Patient in some pain near drainage site otherwise doing well and ambulating to the bathroom Objective Last 24 Hour Vital Signs Date Time Temp Pulse Resp B/P (MAP) Pulse Ox O2 Delivery O2 Flow Rate FiO2 07/04/20 12:00 98 07/04/20 12:00 97.4 91 16 130/62 (84) 99 07/04/20 09:00 Room Air 07/04/20 08:00 97.8 94 16 137/71 (93) 98 07/04/20 08:00 93 07/04/20 04:00 97.5 93 16 149/88 (108) 100 07/04/20 04:00 91 07/04/20 00:00 92 07/04/20 00:00 97.5 98 16 111/57 (75) 100 07/03/20 21:15 97.6 86 20 132/71 (91) 98 07/03/20 21:00 Room Air 07/03/20 20:20 84 15 145/76 100 Nasal Cannula 3 07/03/20 20:14 97.9 88 16 154/78 100 Nasal Cannula 3 07/03/20 20:09 90 13 148/73 100 Nasal Cannula 3 07/03/20 19:54 87 13 143/73 100 Nasal Cannula 3 07/03/20 19:44 97.9 07/03/20 19:39 91 15 135/75 100 Nasal Cannula 3 07/03/20 19:24 93 16 150/63 100 Simple Mask 6 07/03/20 19:14 95 20 150/69 100 Simple Mask 6 07/03/20 19:10 99 20 146/80 100 Simple Mask 6 07/03/20 19:05 103 15 162/81 100 Simple Mask 6 07/03/20 19:05 101 18 100 07/03/20 19:04 104 16 100 07/03/20 19:00 98.7 105 25 177/92 99 Simple Mask 6 07/03/20 16:00 91 Intake and Output 07/03/20 07/04/20 19:00 07:00 Intake Total 100 ml 520 ml Output Total 10 ml 15 ml Balance 90 ml 505 ml Intake Oral 0 ml 420 ml IV Total 100 ml 100 ml Output Drainage Total 15 ml Estimated Blood Loss 10 ml # Voids 1 1 Height (Feet): 5 Height (Inches): 4.00 Weight (Pounds): 200 General Appearance: WD/WN, no apparent distress, overweight EENT: PERRL/EOMI Neck: supple Cardiovascular: normal rate, regular rhythm Respiratory/Chest: normal breath sounds Abdomen: soft, tender, other - tenderness near drain site, drain with serosanguious fluid, abdomen softer Extremities: normal range of motion Neurologic: product safety technician II-XII grossly normal, oriented x 3 Skin: warm/dry Assessment/Plan Status: stable Assessment/Plan: #Abdominal Pain #Large Hematoma/Seroma Patient presents following recent surgery with large left sided hematoma. - S/p I&D 06/[address] Gagnon - CT Abd - Large fluid collection [id number] - S/p Rocephen x1 and pre/post op prophylaxis - Surgery following, appreciate recs - Dhruvan prn for n/v - Tramadol for pain - Patient needs home health on discharge. CM to assist with setting up home health for patient. #Colonic Diverticulosis #Constipation - Bowel Regimen #S/p Lumbar Surgery #HLD - Continue statin #Tobacco Use - Discuss cessation Reg Diet Full Code SCDs #Dispo - Patient is stable for discharge. Awaiting assistance from CM to setup home health. Time spent is approximately 33 minutes with 16 minutes spent with counseling and care coordination. D/w Consultants and nurse Time of note does not reflect time of encounter. Alisha Dumont M.D. Jul 04, 2020 13:18
--- NOTE | 2020-07-04 14:08 | NUR ---
CASE MANAGEMENT:REVIEW 07/04/20 SI: POD #1....ABDOMINAL WALL HEMATOMA/SEROMA 97.4 91 16 130/62 99% ON RA IS: IV ANCEF Q8HRS HEPARIN SQ Q12 WELLBUTRIN PO Q12 ALLOPURINOL PO QD TYLENOL #3 PO Q4HRS PRN : TELEMETRY STATUS DCP; FROM HOME PLAN: SCHEDULED FOR SURGERY ~EVACUATION OF ABDOMINAL HEMATOMA vs FLUID COLLECTION, INCISION AND DRAINAGE , POSSIBLE DEBRIDEMENT
[2020-07-04] MEDS ORDERED: CEPHALEXIN250 MG ORAL (14:35)
--- NOTE | 2020-07-04 14:36 | Discharge Instructions ---
Discharge Instructions Discharge Instructions Follow up with: Please take Keflex for the next 7 days. Follow up with Dr. Kelley 06/06 For Congestive Heart Failure Reminder Report to your physician any weight gain of 5 pounds or more in one week. Alisha Dumont M.D. Jul 04, 2020 14:36
[2020-07-04 16:00] VITALS: BP 125/67
--- NOTE | 2020-07-04 17:51 | Surgery Progress Note ---
Surgery Progress Note Subjective Additional Comments s/p evacuation of fluid collection by primary surgeon and drain placement dressings c/d/i feels well no complaints drain with minimal output plan d/c on keflex. outpatient f/u with Dr. Mao monday for drain removal Objective Last 24 Hour Vital Signs Date Time Temp Pulse Resp B/P (MAP) Pulse Ox O2 Delivery O2 Flow Rate FiO2 07/04/20 16:00 97.8 94 16 125/67 (86) 99 07/04/20 12:00 98 07/04/20 12:00 97.4 91 16 130/62 (84) 99 07/04/20 09:00 Room Air 07/04/20 08:00 97.8 94 16 137/71 (93) 98 07/04/20 08:00 93 07/04/20 04:00 97.5 93 16 149/88 (108) 100 07/04/20 04:00 91 07/04/20 00:00 92 07/04/20 00:00 97.5 98 16 111/57 (75) 100 07/03/20 21:15 97.6 86 20 132/71 (91) 98 07/03/20 21:00 Room Air 07/03/20 20:20 84 15 145/76 100 Nasal Cannula 3 07/03/20 20:14 97.9 88 16 154/78 100 Nasal Cannula 3 07/03/20 20:09 90 13 148/73 100 Nasal Cannula 3 07/03/20 19:54 87 13 143/73 100 Nasal Cannula 3 07/03/20 19:44 97.9 07/03/20 19:39 91 15 135/75 100 Nasal Cannula 3 07/03/20 19:24 93 16 150/63 100 Simple Mask 6 07/03/20 19:14 95 20 150/69 100 Simple Mask 6 07/03/20 19:10 99 20 146/80 100 Simple Mask 6 07/03/20 19:05 103 15 162/81 100 Simple Mask 6 07/03/20 19:05 101 18 100 07/03/20 19:04 104 16 100 07/03/20 19:00 98.7 105 25 177/92 99 Simple Mask 6 I&O Intake and Output 07/03/20 07/04/20 19:00 07:00 Intake Total 100 ml 520 ml Output Total 10 ml 15 ml Balance 90 ml 505 ml Intake Oral 0 ml 420 ml IV Total 100 ml 100 ml Output Drainage Total 15 ml Estimated Blood Loss 10 ml # Voids 1 1 Plan Problems: (1) Abdominal wall bulge Assessment & Plan: 74-year-old female with anterior abdominal wall left-sided large hematoma. Tender causing emesis discomfort. Potentially infected unsure. Patient to be admitted for IV antibiotics care management and likely evacuation. Discussed with patient's primary surgeon and we have scheduled her for 07/03/2020 for evacuation and care plan. Okay for diet in the meantime. N.p.o. past midnight. IV fluids consent will follow with recommendations and s urgical intervention. Thank you ABDOMEN: Liver: Unremarkable. Gallbladder and bile ducts: Unremarkable. Pancreas: Unremarkable. Spleen: Unremarkable. Adrenals: Unremarkable. Kidneys and ureters: Few cortical cysts within the kidneys bilaterally. No hydronephrosis. No nephrolithiasis. Stomach and bowel: Colonic diverticulosis most pronounced in the sigmoid colon. Mild mucosal thickening within the sigmoid colon in the left lower quadrant could potentially represent very mild diverticulitis or nonspecific colitis. Moderate colonic stool burden. PELVIS: Appendix: Status post appendectomy. Bladder: Unremarkable. No stones. Reproductive: Status post hysterectomy. ABDOMEN and PELVIS: Intraperitoneal space: Unremarkable. No free air. No significant fluid collection. Bones/joints: Status post L4-5 and L5-S1 anterior instrumented fusion. Inflammatory changes within the soft tissues immediately anterior to the spine or favored postsurgical if the surgery was recent. Soft tissues: Large fluid collection within the left lower quadrant subcutaneous fat measuring 10.0 x 10.8 x 13.7 cm. Vasculature: Unremarkable. Lymph nodes: Unremarkable. IMPRESSION: 1. Large fluid collection within the left lower quadrant subcutaneous fat measuring 10.0 x 10.8 x 13.7 cm. Appearance is most suggestive of a resolving hematoma/seroma. Abscess is considered less likely. 2. Colonic diverticulosis most pronounced in the sigmoid colon. Mild mucosal thickening within the sigmoid colon in the left lower quadrant could potentially represent very mild diverticulitis or nonspecific colitis. 3. Moderate colonic stool burden. Correlate for constipation. 4. Small hiatal hernia. 5. Status post hysterectomy. 6. Status post L4-5 and L5-S1 anterior instrumented fusion. Inflammatory changes within the soft tissues immediately anterior to the spine are favored postsurgical if the surgery was recent. No evidence of hardware complication. (2) Abdominal wall fluid collections Froy Gagnon Jul 04, 2020 17:51
--- NOTE | 2020-07-04 18:10 | NUR ---
NURSE NOTES: Patient discharged to home, AxOx4, vitals stable prior to discharge. All discharge instructions and medication list discussed with patient, who verbalized understanding. Educated pt on proper handling of JOSE drain, dressing materials provided, instructed pt to schedule followup with Dr. Kelley for Monday07/06/20. PIV removed. Surgical site dressing over abdomen clean, dry and intact. Pt left at 5:50pm via private vehicle accompanied by daughter.
--- NOTE | 2020-07-06 09:03 | Operative Note - Dictated ---
DATE OF OPERATION: 07/03/2020 PREOPERATIVE DIAGNOSIS: Abdominal wall fluid collection. POSTOPERATIVE DIAGNOSIS: Abdominal wall fluid collection. PROCEDURE: Surgical removal of abnormal wall fluid collection. SURGEON: Jason Yen MD ANESTHESIA: General. EBL: 1 mL. OPERATIVE NOTE: Risks, benefits, complications, alternative therapies explained to the patient. Consent obtained. This is a 74-year-old female who had undergone an anterior retroperitoneal exposure interbody fusion lumbosacral spine about 2 months ago. Patient subsequently developed a left lower quadrant fluid collection. CAT scan was done, which showed fluid collection subcutaneously below the skin. It appeared to be about 10 x 10 cm and causing pressure. Patient also had nausea and vomiting. I had a long discussion with the patient and the daughters. I explained to them the pathology and the fact that the fluid has to be drained. Risks, benefits, complications, alternative therapies explained to the patient and the family. Consent obtained. Risks and benefits have been explained to the patient and the family included, but not limited to bleeding, infection, damage to the bowels, need for further surgeries, and the care for the drain postoperatively. OPERATIVE TECHNIQUE: Patient was placed in supine position, prepped and draped in usual sterile fashion. Time-out was called. Antibiotics were given. I made a 5 cm incision in a horizontal fashion over the left lower quadrant . The incision was taken down to subcutaneous tissue, which was then opened using electrocautery. At this time, using Metzenbaum scissors dissection was carried down into the pocket, which was then opened. About 200 mL of serous fluid, which appeared to be thin and yellowish, but not cloudy was removed. The mass was decompressed. Cultures were sent for pathological examination. A 19-Faroese Andi-Sanders was brought out through lower abdominal wall laterally, secured to skin using 2-0 nylon sutures. The wound was irrigated copiously using antibiotic solution and closed in 2 layers of 2-0 Vicryl suture for the deep and 3-0 Vicryl suture for running subcuticular skin closure. Patient tolerated the procedure well, stayed hemodynamically stable throughout the operation. Jason Yen MD DR: JAMARCUS JOB#: [id number] CC:
--- NOTE | 2020-07-10 18:33 | Discharge Summary ---
Discharge Summary Hospital Course Date of Admission Jul 01, 2020 at 18:30 Date of Discharge Jul 04, 2020 at 18:00 Admitting Diagnosis abdominal wall hematoma vs abscess [facility] Spruce Racheal Hawkins is a 74 year old female who was admitted on Jul 01, 2020 at 18:30 for Abdominal Wall Hematoma Vs Abscess Hospital Course Physical Exam: General: NAD, comfortable Cards: Regular rate rhythm Resp: CTABL Abdomen: soft, slight tenderness near JOSE drain site, site c/d/i Skin: Warm and dry Patient initially presented with worsening abdominal pain. She had a recent lumbar surgery with anterior and posterior approach. CT scan showed a large fluid collection [id number]. She was followed by Surgery and had an I&D performed 06/03 with evacuation fo hematoma. She was treated with pre-post op prophylaxis. She declined home health on discharge. She is to be discharged with JOSE drain in place. She is to follow up with surgeon on Monday and has instructions to do. Time of note does not reflect time of encounter. Discharge Condition Upon Discharge: stable Discharge Vital Signs Last Vital Signs Date Time Temp Pulse Resp B/P (MAP) Pulse Ox O2 Delivery O2 Flow Rate FiO2 07/04/20 16:00 105 07/04/20 16:00 97.8 16 125/67 (86) 99 07/04/20 09:00 Room Air 07/03/20 20:20 3 Discharge Disposition Patient was discharged to home Discharge Instructions Discharge Instructions Follow up with: Please take Keflex for the next 7 days. Follow up with Dr. Kelley 06/06 Alisha Dumont M.D. Jul 10, 2020 18:33
== END 2020-07-04 18:00 | disposition home health service (06) | DRG 909 ==
LOC: EMR 16:35 → 2E 18:30 → EDBEDREQ 07-02 00:09
PROC: 0W9F0ZZ Drainage of Abdominal Wall, Open Approach (ICD-10-PCS; principal; 2020-07-03 16:00)
DX: L76.34 Postprocedural seroma of skin and subcutaneous tissue following other procedure (principal); Y83.8 Other surgical procedures as the cause of abnormal reaction of the patient, or of later complication, without mention of misadventure at the time of the procedure; K57.90 Diverticulosis of intestine, part unspecified, without perforation or abscess without bleeding; Z88.6 Allergy status to analgesic agent; I10 Essential (primary) hypertension; E78.5 Hyperlipidemia, unspecified; K59.00 Constipation, unspecified; F17.200 Nicotine dependence, unspecified, uncomplicated; K44.9 Diaphragmatic hernia without obstruction or gangrene; Z98.1 Arthrodesis status
CPT/HCPCS: 36415; 74176; 80053; 81003; 83690; 85025; 85610; 85730; 86850; 86870; 86900; 86901; 86904; 87070; 87075; 87086; 87205; 93005; 94003; 94150; 96365; 96375; 99285; J2250; J2405; U0002